=== PATIENT | female | born 1940 | race Caucasian/White ===

== ENCOUNTER → 2018-03-01 | Outpatient (CLI) | payer MEDICARE, OTHER ==
[~2018-03-01] MED LIST: ARIP20; ASPI81EC; CITA20 PO; COLE1 PO; ETOD400; FENO67; GABA300; GABA300 PO; GLIP10 PO; GLYB2.5 PO; HYDACE10A; HYDMOR2 PO; INSUASPI SC; INSULANPEN; K-Dur20 MEQ PO; LEVSOD50 PO; LISI20; LOSA50; LOSA50 PO; Lasix20 MG PO; Lisinopril2.5 MG PO; META800; METF500 PO; METF850 PO; METFORMIN HCL; METO10 PO; METR70GEL; METR70GEL VAG; MINO100 PO; OMEP40CA12 PO; PROM25S PR; Questran4 GM; RISE35; TRADJENTA5 MG PO; TRET.1TC; TRIHYD253A; TRIHYD253A PO; TRIHYD253B; VENL37.5ER PO; VENL75; VITAMINS; ZOLP10; Zofran Odt4 MG SL
[2018-03-01 14:43] LABS: BASOPHILS ABSOLUTE AUTO 0.02 K/mm3 (0.00-0.23); BASOPHILS PERCENT AUTO 0 % (0-2); EOSINOPHILS ABSOLUTE AUTO 0.22 K/mm3 (0.00-0.68); EOSINOPHILS PERCENT AUTO 2 % (0-6); Hematocrit 35.9 % (33.0-51.0); Hemoglobin 11.8 g/dL (11.5-16.0); IMMATURE GRAN ABSOLUTE AUTO 0.04 K/mm3 (0.00-0.10); IMMATURE GRAN PERCENT AUTO 0 % (0-1); LYMPHOCYTES PERCENT AUTO 17 % (21-46); MONOCYTES ABSOLUTE AUTO 0.67 K/mm3 (0.16-1.47); MONOCYTES PERCENT AUTO 6 % (4-13); Mean Corpuscular HGB 29.2 pg (26.0-34.0); Mean Corpuscular HGB Conc 32.9 g/dL (31.5-36.5); Mean Corpuscular Volume 89 fL (80-100); Mean Platelet Volume 9.3 fL (9.1-12.4); NEUTROPHILS ABSOLUTE AUTO 7.93 K/mm3 (1.96-9.15); NEUTROPHILS PERCENT AUTO 74 % (41-73); Platelet Count 318 K/mm3 (150-400); RDW Coefficient Variation 13.7 % (11.7-14.2); RDW Standard Deviation 44.3 fL (35.1-46.3); Red Blood Cell Count 4.04 M/mm3 (3.80-5.20); White Blood Cell Count 10.68 K/mm3 (4.00-11.30)
[2018-03-01 14:54] LABS: Albumin, Blood 3.5 g/dL (3.4-5.0); Albumin/Globulin Ratio 0.9 (0.8-1.8); Bilirubin, Total 0.5 mg/dL (0.1-1.0); Bun/Creatinine Ratio 14.9 (12.0-20.0); Calcium, Blood 9.1 mg/dL (8.5-10.1); Creatinine, Blood 1.81 mg/dL (0.40-1.00); Globulin, Blood 3.8 g/dL (2.2-4.0); Potassium, Blood 4.3 mmol/L (3.5-5.5); Total Protein, Blood 7.3 g/dL (6.4-8.2)
[2018-03-01 15:52] LABS: Source, Urine Clean Catch
[2018-03-01 16:11] LABS: Bacteria Many /hpf; Red Blood Cells, Urine 0-2 /hpf (0-2); Squamous Epithelial Cells Mod /hpf (Few); White Blood Cells, Urine 25-50 /hpf (0-5)
== END ==
LOC: LAB EV 14:33 → LAB SHORT 14:33
PROVIDERS: Physician Assistant
DX: R05 Cough (principal); R82.79 Other abnormal findings on microbiological examination of urine
CPT/HCPCS: 80053; 81015; 83880; 84484; 85025; 87086

== ENCOUNTER → 2018-04-02 | Outpatient (CLI) | payer MEDICARE, OTHER ==
[2018-04-02 14:47] LABS: Albumin, Blood 3.7 g/dL (3.4-5.0); Anion Gap 8 mmol/L (6-16); Blood Urea Nitrogen 21 mg/dL (8-24); Bun/Creatinine Ratio 17.1 (12.0-20.0); CO2, Blood 28 mmol/L (21-32); Calcium, Blood 8.7 mg/dL (8.5-10.1); Chloride, Blood 108 mmol/L (98-108); Creatinine, Blood 1.23 mg/dL (0.40-1.00); Glomerular Filtration Rate 45 (60-); Glucose, Blood 76 mg/dL (70-99); Phosphorus, Blood 2.6 mg/dL (2.5-4.9); Potassium, Blood 3.9 mmol/L (3.5-5.5); Sodium, Blood 144 mmol/L (136-145)
== END | disposition home or self-care (01) ==
LOC: LAB SHORT 12:50 → OLS 12:50
PROVIDERS: Internal Medicine
DX: N18.3 Chronic kidney disease, stage 3 (moderate) (principal)
CPT/HCPCS: 36415; 80069

== ENCOUNTER → 2018-06-25 | Outpatient (CLI) | payer MEDICARE, OTHER | END | disposition home or self-care (01) | LOC: PLD 10:02 → LAB SHORT 10:02 | DX: L57.0 Actinic keratosis (principal) | CPT/HCPCS: 88305 ==

== ENCOUNTER → 2018-10-24 | Outpatient (CLI) | payer MEDICARE, OTHER | END | disposition home or self-care (01) | LOC: LAB SHORT 11:38 → LAB EV 11:38 | DX: N39.0 Urinary tract infection, site not specified (principal) | CPT/HCPCS: 87086 ==

== ENCOUNTER 2018-12-12 14:22 | Emergency (ER) | payer MEDICARE, OTHER ==
[~2018-12-12] VITALS: Ht 167.6 cm; Wt 94.8 kg
[2018-12-12 15:32] LABS: Influenza A Negative (NEGATIVE); Influenza B Negative (NEGATIVE)
[2018-12-12 15:46] LABS: BASOPHILS ABSOLUTE AUTO 0.02 K/mm3 (0.00-0.23); BASOPHILS PERCENT AUTO 0 % (0-2); EOSINOPHILS ABSOLUTE AUTO 0.27 K/mm3 (0.00-0.68); EOSINOPHILS PERCENT AUTO 5 % (0-6); Hematocrit 38.3 % (33.0-51.0); Hemoglobin 12.1 g/dL (11.5-16.0); IMMATURE GRAN ABSOLUTE AUTO 0.02 K/mm3 (0.00-0.10); IMMATURE GRAN PERCENT AUTO 0 % (0-1); LYMPHOCYTES ABSOLUTE AUTO 1.43 K/mm3 (0.84-5.20); LYMPHOCYTES PERCENT AUTO 28 % (21-46); MONOCYTES ABSOLUTE AUTO 0.54 K/mm3 (0.16-1.47); MONOCYTES PERCENT AUTO 10 % (4-13); Mean Corpuscular HGB 28.5 pg (26.0-34.0); Mean Corpuscular HGB Conc 31.6 g/dL (31.5-36.5); Mean Corpuscular Volume 90 fL (80-100); Mean Platelet Volume 9.2 fL (9.1-12.4); NEUTROPHILS ABSOLUTE AUTO 2.89 K/mm3 (1.96-9.15); NEUTROPHILS PERCENT AUTO 56 % (41-73); Platelet Count 251 K/mm3 (150-400); RDW Coefficient Variation 13.2 % (11.7-14.2); RDW Standard Deviation 43.9 fL (35.1-46.3); Red Blood Cell Count 4.24 M/mm3 (3.80-5.20); White Blood Cell Count 5.17 K/mm3 (4.00-11.30)
== END 2018-12-12 17:17 | disposition home or self-care (01) ==
LOC: ER 14:22
PROVIDERS: Physician Assistant
DX: J11.1 Influenza due to unidentified influenza virus with other respiratory manifestations (principal); F32.9 Major depressive disorder, single episode, unspecified; E03.9 Hypothyroidism, unspecified; I10 Essential (primary) hypertension; E11.9 Type 2 diabetes mellitus without complications; Z79.899 Other long term (current) drug therapy; Z79.4 Long term (current) use of insulin; Z88.5 Allergy status to narcotic agent; Z88.2 Allergy status to sulfonamides; Z88.8 Allergy status to other drugs, medicaments and biological substances; Z87.891 Personal history of nicotine dependence
CPT/HCPCS: 71046; 83880; 84484; 85025; 87804; 94640; 99284-25

== ENCOUNTER → 2019-06-09 | Outpatient (CLI) | payer MEDICARE, OTHER | LOC: LAB SHORT 19:05 → LAB EV 19:05 | DX: N39.0 Urinary tract infection, site not specified (principal) | CPT/HCPCS: 87077; 87086; 87186 ==

== ENCOUNTER → 2019-11-06 | Outpatient (CLI) | payer MEDICARE, OTHER ==
[2019-11-06 15:18] LABS: Source, Urine Clean Catch
[2019-11-06 16:36] LABS: Bilirubin, Urine Neg (Neg); Blood, Urine 2+ (Neg); Glucose Qualitative, Urine Neg (Neg); Ketones, Urine Neg (Neg); Leukocyte Esterase, Urine 2+ (Neg); Nitrite, Urine Neg (Neg); Protein, Urine 2+ (Neg); Specific Gravity, Urine 1.015 (1.003-1.022); Urobilinogen, Urine NORM (Normal)
[2019-11-06 16:50] LABS: Appearance, Urine Clear (Clear); Color, Urine Yellow (P-Yellow)
[2019-11-06 16:52] LABS: Bacteria Mod /hpf; Squamous Epithelial Cells Few /hpf (Few)
== END ==
LOC: LAB SHORT 15:15 → OLS 15:15
PROVIDERS: Internal Medicine
DX: N39.0 Urinary tract infection, site not specified (principal)
CPT/HCPCS: 81001; 87086

== ENCOUNTER 2019-12-03 09:29 | Day surgery (SDC) | payer MEDICARE, OTHER ==
[~2019-12-03] VITALS: Ht 165.1 cm; Wt 91.5 kg
[2019-12-03] MEDS ORDERED: METF500 (10:23)
[2019-12-03] MEDS ORDERED: POTA10T (10:23)
[2019-12-03] MEDS ORDERED: Ferus150 MG (10:23)
[2019-12-03] MEDS ORDERED: OXYC5 (10:23)
[2019-12-03] MEDS ORDERED: TRULICITY1.5 MG/0.5 (10:24)
[2019-12-03] MEDS ORDERED: OMEP20ER (10:25)
[2019-12-03] MEDS ORDERED: LINZESS72 MCG (10:25)
--- NOTE | 2019-12-03 10:46 | NUR ---
12/03/19 1046 Carrie Carias WHEN ASKED PT. IF SHE HAD ANY PAIN, PT. VERBALIZES CONSTANT BACK PAIN IN WHICH SHE TAKES OXYCODONE FOR & HASN'T TAKEN HER OXYCONDONE TODAY. PT. ALSO VERBALIZES HAS SOME ABD. PAIN FROM THE PREP. PT. RATING HER BACK PAIN "8" & ABD. PAIN "5".
== END 2019-12-03 12:05 | disposition home or self-care (01) ==
LOC: ORSCSDS 09:29
PROVIDERS: Internal Medicine Gastroenterology
PROC: 0DB78ZX Excision of Stomach, Pylorus, Via Natural or Artificial Opening Endoscopic, Diagnostic (ICD-10-PCS; principal; 2019-12-03 10:45)
PROC: 0DBL8ZX Excision of Transverse Colon, Via Natural or Artificial Opening Endoscopic, Diagnostic (ICD-10-PCS; principal; 2019-12-03 10:45)
PROC: 0D757ZZ Dilation of Esophagus, Via Natural or Artificial Opening (ICD-10-PCS; principal; 2019-12-03 10:45)
DX: R19.4 Change in bowel habit (principal); R13.10 Dysphagia, unspecified; D12.4 Benign neoplasm of descending colon; K29.70 Gastritis, unspecified, without bleeding; K57.30 Diverticulosis of large intestine without perforation or abscess without bleeding; K64.8 Other hemorrhoids; I10 Essential (primary) hypertension; E11.9 Type 2 diabetes mellitus without complications; E03.9 Hypothyroidism, unspecified; N18.9 Chronic kidney disease, unspecified; Z87.891 Personal history of nicotine dependence; Z79.4 Long term (current) use of insulin; Z79.84 Long term (current) use of oral hypoglycemic drugs; Z79.899 Other long term (current) drug therapy
CPT/HCPCS: 82947; 88305; 88342; J2405; J2704; J7120

== ENCOUNTER → 2019-12-12 | Outpatient (CLI) | payer MEDICARE, OTHER ==
[~2019-12-12] MED LIST changes: +Ferus150 MG; +LINZESS72 MCG; +METF500; +OMEP20ER; +OXYC5; +POTA10T; +TRULICITY1.5 MG/0.5
[2019-12-12 14:50] LABS: Source, Urine Clean Catch
[2019-12-12 15:48] LABS: Bilirubin, Urine Neg (Neg); Blood, Urine 3+ (Neg); Color, Urine Yellow (P-Yellow); Glucose Qualitative, Urine 2+ (Neg); Ketones, Urine Neg (Neg); Leukocyte Esterase, Urine 1+ (Neg); Nitrite, Urine Neg (Neg); Protein, Urine 2+ (Neg); Urobilinogen, Urine NORM (Normal)
[2019-12-12 16:11] LABS: Appearance, Urine Hazy (Clear)
[2019-12-12 16:32] LABS: Bacteria Mod /hpf; Squamous Epithelial Cells Mod /hpf (Few)
== END | disposition home or self-care (01) ==
LOC: LAB SHORT 14:50 → OLS 14:50 → LAB FUT 12-09 09:15
PROVIDERS: Internal Medicine
DX: R31.9 Hematuria, unspecified (principal)
CPT/HCPCS: 81001; 87086

== ENCOUNTER 2020-06-23 07:24 | Day surgery (SDC) | payer MEDICARE, OTHER ==
[~2020-06-23] VITALS: Ht 162.6 cm; Wt 89.7 kg
[~2020-06-23 07:24] MED LIST changes: +Amaryl1 MG PO; +BASAGLAR K100 UNIT/1 SC; +COLESTID1 G1 PO; +DYAZIDE 37.5-21 EACH PO; +FERREX 150150 M1 PO; +FLUT.05NI; +LEVSOD75 PO; +LINZESS72 MCG PO; +Loratadine10 MG PO; +NOVOLOG FL100 UNIT/3 SQ; +OXYC5 PO; +POTA10T PO; +TRULICITY1.5 MG/0.1
--- NOTE | 2020-06-23 08:52 | NUR ---
06/23/20 0852 Elana Díaz (Jess BEDSIDE INJECTION DONE BY DR. LILLY, DR. FRYE PRESENT. SITE CHECK COMPLETED, PULSE OX ON THROUGHOUT PROCEDURE. PT TOLERATED WELL.
== END 2020-06-23 09:56 | disposition home or self-care (01) ==
LOC: ORSCSDS 07:24
PROVIDERS: Orthopaedic Surgery
PROC: 01N54ZZ Release Median Nerve, Percutaneous Endoscopic Approach (ICD-10-PCS; principal; 2020-06-23 08:30)
DX: G56.01 Carpal tunnel syndrome, right upper limb (principal); I10 Essential (primary) hypertension; E11.9 Type 2 diabetes mellitus without complications; N18.3 Chronic kidney disease, stage 3 (moderate); E03.9 Hypothyroidism, unspecified; E78.5 Hyperlipidemia, unspecified; Z87.891 Personal history of nicotine dependence; E66.9 Obesity, unspecified; Z68.34 Body mass index [BMI] 34.0-34.9, adult; Z79.4 Long term (current) use of insulin; Z79.84 Long term (current) use of oral hypoglycemic drugs; Z79.899 Other long term (current) drug therapy
CPT/HCPCS: 82947; J2250; J7120

== ENCOUNTER → 2021-01-19 | Outpatient (CLI) | payer MEDICARE, OTHER | LOC: LAB SHORT 07:48 | DX: L98.9 Disorder of the skin and subcutaneous tissue, unspecified (principal); L57.0 Actinic keratosis | CPT/HCPCS: 88305 ==

== ENCOUNTER → 2021-08-03 | Outpatient (CLI) | payer MEDICARE, OTHER | LOC: LAB SHORT 14:51 → LAB 14:51 | DX: D48.5 Neoplasm of uncertain behavior of skin (principal); D04.62 Carcinoma in situ of skin of left upper limb, including shoulder; Z88.2 Allergy status to sulfonamides; Z88.5 Allergy status to narcotic agent; Z88.6 Allergy status to analgesic agent; Z88.8 Allergy status to other drugs, medicaments and biological substances | CPT/HCPCS: 88305 ==

== ENCOUNTER → 2021-09-14 | Outpatient (CLI) | payer MEDICARE, OTHER ==
[2021-09-15 10:55] LABS: Candida species (DNA Probe) Negative (NEGATIVE); G. vaginalis (DNA Probe) Negative (NEGATIVE); T. vaginalis (DNA Probe) Negative (NEGATIVE)
== END | disposition home or self-care (01) ==
LOC: LAB SHORT 19:07 → LAB 19:07
PROVIDERS: Physician Assistant
DX: N76.0 Acute vaginitis (principal)
CPT/HCPCS: 87480; 87510; 87660

== ENCOUNTER → 2021-09-29 | Outpatient (CLI) | payer MEDICARE, OTHER | END | disposition home or self-care (01) | LOC: LAB SHORT 14:52 | DX: C44.629 Squamous cell carcinoma of skin of left upper limb, including shoulder (principal) | CPT/HCPCS: 88305 ==

== ENCOUNTER → 2021-11-03 | Outpatient (CLI) | payer MEDICARE, OTHER ==
[2021-11-03 11:10] LABS: BASOPHILS ABSOLUTE AUTO 0.02 K/mm3 (0.00-0.23); BASOPHILS PERCENT AUTO 0 % (0-2); EOSINOPHILS ABSOLUTE AUTO 0.14 K/mm3 (0.00-0.68); EOSINOPHILS PERCENT AUTO 2 % (0-6); Hematocrit 36.4 % (33.0-51.0); Hemoglobin 11.5 g/dL (11.5-16.0); IMMATURE GRAN ABSOLUTE AUTO 0.02 K/mm3 (0.00-0.10); IMMATURE GRAN PERCENT AUTO 0 % (0-1); LYMPHOCYTES ABSOLUTE AUTO 2.04 K/mm3 (0.84-5.20); LYMPHOCYTES PERCENT AUTO 27 % (21-46); MONOCYTES ABSOLUTE AUTO 0.38 K/mm3 (0.16-1.47); MONOCYTES PERCENT AUTO 5 % (4-13); Mean Corpuscular HGB 27.8 pg (26.0-34.0); Mean Corpuscular HGB Conc 31.6 g/dL (31.5-36.5); Mean Corpuscular Volume 88 fL (80-100); Mean Platelet Volume 9.3 fL (9.1-12.4); NEUTROPHILS ABSOLUTE AUTO 4.93 K/mm3 (1.96-9.15); NEUTROPHILS PERCENT AUTO 65 % (41-73); Platelet Count 290 K/mm3 (150-400); RDW Standard Deviation 41.2 fL (35.1-46.3); Red Blood Cell Count 4.14 M/mm3 (3.80-5.20); White Blood Cell Count 7.53 K/mm3 (4.00-11.30)
[2021-11-03 11:34] LABS: Alanine Aminotransfer (ALT/SGP 15 U/L (12-78); Albumin, Blood 3.8 g/dL (3.4-5.0); Albumin/Globulin Ratio 1.1 (0.8-1.8); Alk Phos 137 U/L (40-126); Anion Gap 14 mmol/L (6-16); Aspartate Aminotrans (AST/SGOT 11 U/L (12-37); Bilirubin, Total 0.4 mg/dL (0.1-1.0); Blood Urea Nitrogen 48 mg/dL (8-24); Bun/Creatinine Ratio 24.2 (12.0-20.0); CO2, Blood 24 mmol/L (21-32); Calcium, Blood 9.6 mg/dL (8.5-10.1); Chloride, Blood 103 mmol/L (98-108); Creatinine, Blood 1.98 mg/dL (0.40-1.00); Globulin, Blood 3.5 g/dL (2.2-4.0); Glomerular Filtration Rate 24 (60-); Glucose, Blood 156 mg/dL (70-99); Potassium, Blood 4.7 mmol/L (3.5-5.5); Sodium, Blood 141 mmol/L (136-145); Thyroid Stimulating Hormone 0.572 uIU/mL (0.360-4.800); Total Protein, Blood 7.3 g/dL (6.4-8.2); Troponin I <0.017 ng/mL (0.000-0.040)
[2021-11-04 13:55] LABS: CORONAVIRUS (COVID19) CSH-NRL Negative (Negative)
== END | disposition home or self-care (01) ==
LOC: LAB SHORT 11:07
PROVIDERS: Physician Assistant
DX: R07.89 Other chest pain (principal); R53.83 Other fatigue; Z20.822 Contact with and (suspected) exposure to COVID-19
CPT/HCPCS: 80053; 84443; 84484; 85025; U0003

== ENCOUNTER → 2021-11-24 | Outpatient (CLI) | payer MEDICARE, OTHER | END | disposition home or self-care (01) | LOC: LAB SHORT 14:36 | DX: L57.0 Actinic keratosis (principal) | CPT/HCPCS: 88305 ==

== ENCOUNTER → 2022-06-05 | Outpatient (CLI) | payer MEDICARE, OTHER | END | disposition home or self-care (01) | LOC: LAB 11:39 → LAB SHORT 11:39 | DX: C44.622 Squamous cell carcinoma of skin of right upper limb, including shoulder (principal); C44.629 Squamous cell carcinoma of skin of left upper limb, including shoulder; L57.0 Actinic keratosis | CPT/HCPCS: 88305 ==

== ENCOUNTER → 2022-12-05 | Outpatient (CLI) | payer MEDICARE, OTHER | END | disposition home or self-care (01) | LOC: LAB SHORT 12:22 → PLD 12:22 | DX: L57.0 Actinic keratosis (principal) | CPT/HCPCS: 88305 ==

== ENCOUNTER → 2023-02-21 | Outpatient (CLI) | payer MEDICARE, OTHER | END | disposition home or self-care (01) | LOC: PLD 08:03 → LAB SHORT 08:03 | DX: D48.5 Neoplasm of uncertain behavior of skin (principal); D04.71 Carcinoma in situ of skin of right lower limb, including hip; L57.0 Actinic keratosis | CPT/HCPCS: 88305 ==

== ENCOUNTER → 2023-06-20 | Outpatient (CLI) | payer MEDICARE, OTHER | END | disposition home or self-care (01) | LOC: LAB SHORT 12:29 → PLD 12:29 | DX: D48.5 Neoplasm of uncertain behavior of skin (principal) | CPT/HCPCS: 88305 ==

== ENCOUNTER → 2023-09-13 | Outpatient (CLI) | payer MEDICARE, OTHER | LOC: LAB 14:30 → LAB SHORT 14:30 | DX: D04.62 Carcinoma in situ of skin of left upper limb, including shoulder (principal) | CPT/HCPCS: 88305 ==

== ENCOUNTER → 2023-10-18 | Outpatient (CLI) | payer MEDICARE, OTHER | LOC: LAB 12:34 → LAB SHORT 12:34 | DX: D04.62 Carcinoma in situ of skin of left upper limb, including shoulder (principal); D04.71 Carcinoma in situ of skin of right lower limb, including hip | CPT/HCPCS: 88305 ==

== ENCOUNTER → 2024-01-29 | Outpatient (CLI) | payer MEDICARE, OTHER ==
[~2024-01-29] MED LIST changes: +AMLO5 PO; +SAVELLA12.5 MG PO; +Vitamin D1000 UNI1 PO
[2024-01-29 20:45] LABS: BASOPHILS ABSOLUTE AUTO 0.02 K/mm3 (0.00-0.23); BASOPHILS PERCENT AUTO 0 % (0-2); EOSINOPHILS PERCENT AUTO 2 % (0-6); Hematocrit 36.5 % (33.0-51.0); IMMATURE GRAN ABSOLUTE AUTO 0.01 K/mm3 (0.00-0.10); IMMATURE GRAN PERCENT AUTO 0 % (0-1); LYMPHOCYTES ABSOLUTE AUTO 1.86 K/mm3 (0.84-5.20); LYMPHOCYTES PERCENT AUTO 34 % (21-46); MONOCYTES ABSOLUTE AUTO 0.32 K/mm3 (0.16-1.47); MONOCYTES PERCENT AUTO 6 % (4-13); Mean Corpuscular HGB 29.3 pg (26.0-34.0); Mean Corpuscular HGB Conc 32.9 g/dL (31.5-36.5); Mean Corpuscular Volume 89 fL (80-100); Mean Platelet Volume 9.5 fL (9.1-12.4); NEUTROPHILS ABSOLUTE AUTO 3.09 K/mm3 (1.96-9.15); NEUTROPHILS PERCENT AUTO 57 % (41-73); Platelet Count 350 K/mm3 (150-400); RDW Coefficient Variation 12.8 % (11.7-14.2); RDW Standard Deviation 41.9 fL (35.1-46.3)
[2024-01-29 21:15] LABS: Bun/Creatinine Ratio 18.1 (12.0-20.0); Calcium, Blood 9.6 mg/dL (8.5-10.1); Creatinine, Blood 1.6 mg/dL (0.40-1.00); Potassium, Blood 4.3 mmol/L (3.5-5.5); Thyroid Stimulating Hormone 1.05 uIU/mL (0.360-4.800)
== END | disposition home or self-care (01) ==
LOC: LAB 19:50 → LAB SHORT 19:50
PROVIDERS: Physician Assistant Medical
DX: R60.9 Edema, unspecified (principal); R53.83 Other fatigue
CPT/HCPCS: 80048; 83880; 84443; 85025

== ENCOUNTER 2024-02-06 03:26 | Day surgery (SDC) | payer MEDICARE, OTHER ==
[~2024-02-06 03:26] MED LIST changes: -SAVELLA12.5 MG PO
[2024-02-06 14:06] VITALS: BP 145/71
[2024-02-06] MEDS ORDERED: SAVELLA12.5 MG PO (14:09)
[2024-02-06] MEDS ORDERED: Golimumab 150 MG in NS 100 ML IV SCH (14:30)
--- NOTE | 2024-02-10 15:29 | NUR ---
BETSY BECERRIL START TIME: 1450 STOP TIME: 1520
== END 2024-02-06 15:30 | disposition home or self-care (01) ==
LOC: ATC 03:26
DX: M05.79 Rheumatoid arthritis with rheumatoid factor of multiple sites without organ or systems involvement (principal); I12.9 Hypertensive chronic kidney disease with stage 1 through stage 4 chronic kidney disease, or unspecified chronic kidney disease; E11.22 Type 2 diabetes mellitus with diabetic chronic kidney disease; N18.9 Chronic kidney disease, unspecified; Z88.5 Allergy status to narcotic agent; Z88.2 Allergy status to sulfonamides; Z88.8 Allergy status to other drugs, medicaments and biological substances; Z79.890 Hormone replacement therapy; Z79.4 Long term (current) use of insulin; Z79.899 Other long term (current) drug therapy
CPT/HCPCS: 96365; J1602

== ENCOUNTER 2024-03-24 04:01 | Day surgery (SDC) | payer MEDICARE, OTHER ==
[~2024-03-24 04:01] MED LIST changes: +AMLO10 PO; -AMLO5 PO; +Amitiza8 MCG PO; +CARV6.25 PO; +CEPH500 PO; +CHLO25B PO; +CIPR500 PO; +OZEMPIC2 MG/0.75 SC; +SAVELLA12.5 MG PO; +VISBIOME 112.51 EACH PO
[2024-03-24] MEDS ORDERED: Golimumab 150 MG in NS 100 ML IV SCH (14:20)
[2024-03-24 14:54] VITALS: BP 129/55
[2024-03-24 14:59] LABS: BASOPHILS ABSOLUTE AUTO 0.01 K/mm3 (0.00-0.23); BASOPHILS PERCENT AUTO 0 % (0-2); EOSINOPHILS ABSOLUTE AUTO 0.06 K/mm3 (0.00-0.68); EOSINOPHILS PERCENT AUTO 2 % (0-6); Hematocrit 34.7 % (33.0-51.0); Hemoglobin 11.1 g/dL (11.5-16.0); IMMATURE GRAN PERCENT AUTO 0 % (0-1); LYMPHOCYTES ABSOLUTE AUTO 1.55 K/mm3 (0.84-5.20); LYMPHOCYTES PERCENT AUTO 45 % (21-46); MONOCYTES ABSOLUTE AUTO 0.23 K/mm3 (0.16-1.47); MONOCYTES PERCENT AUTO 7 % (4-13); Mean Corpuscular HGB 28.8 pg (26.0-34.0); Mean Corpuscular Volume 90 fL (80-100); Mean Platelet Volume 9.5 fL (9.1-12.4); NEUTROPHILS ABSOLUTE AUTO 1.61 K/mm3 (1.96-9.15); NEUTROPHILS PERCENT AUTO 47 % (41-73); Platelet Count 346 K/mm3 (150-400); RDW Coefficient Variation 12.4 % (11.7-14.2); RDW Standard Deviation 40.3 fL (35.1-46.3); Red Blood Cell Count 3.86 M/mm3 (3.80-5.20); White Blood Cell Count 3.46 K/mm3 (4.00-11.30)
[2024-03-24 15:29] LABS: C-REACTIVE PROTEIN, EXT RANGE <0.290 mg/dL (0.000-0.300)
[2024-03-24 15:30] LABS: Alanine Aminotransfer (ALT/SGP 16 U/L (12-78); Albumin, Blood 3.8 g/dL (3.4-5.0); Alk Phos 86 U/L (50-136); Anion Gap 9 mmol/L (3-11); Aspartate Aminotrans (AST/SGOT 13 U/L (12-37); Bilirubin, Total 0.5 mg/dL (0.1-1.0); Blood Urea Nitrogen 32 mg/dL (8-24); CO2, Blood 28 mmol/L (21-32); Calcium, Blood 9.5 mg/dL (8.5-10.1); Chloride, Blood 109 mmol/L (98-108); Creatinine, Blood 1.88 mg/dL (0.40-1.00); Globulin, Blood 3.7 g/dL (2.2-4.0); Glomerular Filtration Rate 27 (60-); Glucose, Blood 96 mg/dL (70-99); Potassium, Blood 3.6 mmol/L (3.5-5.5); Sodium, Blood 142 mmol/L (136-145); Total Protein, Blood 7.5 g/dL (6.4-8.2)
== END 2024-03-24 15:22 | disposition home or self-care (01) ==
LOC: ATC 04:01
PROVIDERS: Internal Medicine
DX: M05.79 Rheumatoid arthritis with rheumatoid factor of multiple sites without organ or systems involvement (principal); I12.9 Hypertensive chronic kidney disease with stage 1 through stage 4 chronic kidney disease, or unspecified chronic kidney disease; E11.22 Type 2 diabetes mellitus with diabetic chronic kidney disease; N18.9 Chronic kidney disease, unspecified; Z88.5 Allergy status to narcotic agent; Z88.2 Allergy status to sulfonamides; Z88.8 Allergy status to other drugs, medicaments and biological substances; Z79.4 Long term (current) use of insulin; Z79.899 Other long term (current) drug therapy
CPT/HCPCS: 80053; 85025; 86140; 96365; J1602

== ENCOUNTER 2024-06-19 18:12 | Inpatient (IN) | payer MEDICARE, OTHER ==
[~2024-06-19] VITALS: Ht 167.6 cm; Wt 72.8 kg
[~2024-06-19 18:12] MED LIST changes: -AMLO10 PO; +AMLO5; +BETA.05TCA TOP; +MUPIROCIN15 GM TOP
[2024-06-19 19:03] LABS: BASOPHILS ABSOLUTE AUTO 0.02 K/mm3 (0.00-0.23); BASOPHILS PERCENT AUTO 0 % (0-2); EOSINOPHILS PERCENT AUTO 0 % (0-6); Hematocrit 34.6 % (33.0-51.0); Hemoglobin 11.8 g/dL (11.5-16.0); IMMATURE GRAN PERCENT AUTO 1 % (0-1); LYMPHOCYTES ABSOLUTE AUTO 0.91 K/mm3 (0.84-5.20); LYMPHOCYTES PERCENT AUTO 5 % (21-46); MONOCYTES ABSOLUTE AUTO 1.16 K/mm3 (0.16-1.47); MONOCYTES PERCENT AUTO 6 % (4-13); Mean Corpuscular HGB 29.3 pg (26.0-34.0); Mean Corpuscular HGB Conc 34.1 g/dL (31.5-36.5); Mean Corpuscular Volume 86 fL (80-100); Mean Platelet Volume 9.4 fL (9.1-12.4); NEUTROPHILS ABSOLUTE AUTO 15.94 K/mm3 (1.96-9.15); NEUTROPHILS PERCENT AUTO 87 % (41-73); Platelet Count 242 K/mm3 (150-400); RDW Coefficient Variation 12.2 % (11.7-14.2); RDW Standard Deviation 38.1 fL (35.1-46.3); Red Blood Cell Count 4.03 M/mm3 (3.80-5.20); White Blood Cell Count 18.23 K/mm3 (4.00-11.30)
[2024-06-19 19:15] LABS: Albumin, Blood 3.4 g/dL (3.4-5.0); Albumin/Globulin Ratio 0.9 (0.8-1.8); Bilirubin, Total 1.1 mg/dL (0.1-1.0); Bun/Creatinine Ratio 14.1 (12.0-20.0); Calcium, Blood 8.7 mg/dL (8.5-10.1); Creatinine, Blood 1.49 mg/dL (0.40-1.00); Globulin, Blood 3.9 g/dL (2.2-4.0); Potassium, Blood 3.7 mmol/L (3.5-5.5); Total Protein, Blood 7.3 g/dL (6.4-8.2)
[2024-06-19] MEDS ORDERED: NS 1,000 ML IV SCH ×2 (19:25→23:45)
[2024-06-19] MEDS ORDERED: Vancomycin HCL 1,500 MG in NS 250 ML IV ONE (19:25)
[2024-06-19] MEDS ORDERED: CefTRIAXone Sodium 2,000 MG in NS 100 ML IV ONE (19:25)
[2024-06-19 19:45] LABS: Source, Urine Clean Catch
[2024-06-19 19:53] LABS: Appearance, Urine Clear (Clear); Bilirubin, Urine Neg (Neg); Blood, Urine 4+ (Neg); Color, Urine Yellow (P-Yellow); Glucose Qualitative, Urine Neg (Neg); Ketones, Urine Neg (Neg); Leukocyte Esterase, Urine Neg (Neg); Nitrite, Urine Neg (Neg); Protein, Urine 4+ (Neg); Urobilinogen, Urine NORM (Normal); pH, Urine 6.5 (5.0-8.0)
[2024-06-19 19:55] LABS: International Normalized Ratio 1.07; Prothrombin Time Results 11.4 Sec (9.7-11.5)
[2024-06-19 20:03] LABS: Magnesium, Blood 1.6 mg/dL (1.6-2.4); Phosphorus, Blood 1.1 mg/dL (2.5-4.9)
[2024-06-19 20:05] LABS: Bacteria Rare /hpf; Squamous Epithelial Cells Not Seen /hpf (Few); White Blood Cells, Urine 0-2 /hpf (0-5)
[2024-06-19 20:31] LABS: Influenza A, PCR NEGATIVE (NEGATIVE); Influenza B, PCR NEGATIVE (NEGATIVE); Resp Syncytial Virus, PCR NEGATIVE (NEGATIVE); SARS-Cov-2 (COVID-19) PCR, MMC NEGATIVE (NEGATIVE)
[2024-06-19] MEDS ORDERED: Acetaminophen 650 MG Supp PR ONE (22:25)
[2024-06-19] MEDS ORDERED: Ondansetron HCl 2 MG / ML 2ML Vial IV PRN (22:35)
[2024-06-19] MEDS ORDERED: Aspirin 300 MG Supp PR SCH (23:00)
[2024-06-20] MEDS ORDERED: Azithromycin 500 MG in NS 250 ML IV SCH
[2024-06-20] MEDS ORDERED: Potassium Phosphate Dibasic 30 MM in Dextrose 5% 500 ML IV STA (00:20)
[2024-06-20 00:38] VITALS: BP 151/59
--- NOTE | 2024-06-20 02:32 | NUR ---
PATIENT IS A NEW ADMIT FROM THE ED. AXOX 4 AND THREE PERSON TRANSFER FROM [facility] TO BED. NPO. ROCHE PLACED IN ED. IV VANCO INFUSING FROM THE ED. DENIES CHEST PAIN, SOB, AND N/V. LIGHTING ENGINEER STRONG AND EQUAL, PUPILS REACTIVE, PUSH/PULL BLE STRONG AND EQUAL. PATIENT REPORTED NOT REMEMBERING EVENTS FROM PRIOR DAY AND A HALF. FORGOT TO PICKUP FAMILY MEMBER CHILDREN FROM SCHOOL, SLEPT THROUGH EVENT. TELEMETRY PLACED NSR 68. IV ABX INFUSING FOLLOWED BY IV POTASSIUM/PHOSPHATE. SCATTER BRUSING T/O. SCAB TO LEFT FOOT DORSAL FROM RECENT CANCER REMOVAL AND ALSO ON LEFT FACIAL CHEEK. TEMP 98.4. ASPIRIN SUPPOSITORY GIVEN PER EMAR. ORIENTED TO ROOM AND CALL LIGHT SYSTEM. WCTM.
--- NOTE | 2024-06-20 03:20 | NUR ---
MRI SCREENING FORM FILLED OUT AND FAXED. PATIENT REPORTS LANNY GLUCOMETER TO BACK OF LEFT ARM. RESTING/SLEEPING IN BED. WCTM.
[2024-06-20 04:16] VITALS: BP 149/60
[2024-06-20] MEDS ORDERED: OxyCODONE HCL 5 MG TAB PO PRN (06:30)
[2024-06-20] MEDS ORDERED: Insulin Human Lispro 100 Units/ML 3ML Syringe SC SCH (07:30)
[2024-06-20 07:49] VITALS: BP 150/65
[2024-06-20] MEDS ORDERED: LUBIPROSTONE 8 MCG PO SCH (08:00)
[2024-06-20] MEDS ORDERED: Carvedilol 6.25 MG Tab PO SCH (08:00)
[2024-06-20] MEDS ORDERED: Gabapentin 300 MG Cap PO SCH (09:00)
[2024-06-20] MEDS ORDERED: AmLODIPine Besylate 5 MG Tab PO SCH (09:00)
[2024-06-20] MEDS ORDERED: MILNACIPRAN 12.5 MG PO SCH (09:00)
[2024-06-20] MEDS ORDERED: Aspirin 325 MG Tab PO SCH (09:00)
[2024-06-20] MEDS ORDERED: Enoxaparin 30 MG/0.3 ML SYR SC SCH (09:00)
[2024-06-20] MEDS ORDERED: Betamethasone Dip 0.05% Cream 15 gm TOP SCH (09:00)
[2024-06-20] MEDS ORDERED: CefTRIAXone Sodium 1,000 MG in NS 100 ML IV SCH (09:00)
[2024-06-20] MEDS ORDERED: Losartan Potassium 50 MG Tab PO SCH (09:00)
[2024-06-20] MEDS ORDERED: Clopidogrel Bisulfate 75 MG Tab PO SCH (09:00)
[2024-06-20 10:27] LABS: BASOPHILS ABSOLUTE AUTO 0.02 K/mm3 (0.00-0.23); BASOPHILS PERCENT AUTO 0 % (0-2); EOSINOPHILS ABSOLUTE AUTO 0.02 K/mm3 (0.00-0.68); EOSINOPHILS PERCENT AUTO 0 % (0-6); Hemoglobin 11.3 g/dL (11.5-16.0); IMMATURE GRAN ABSOLUTE AUTO 0.06 K/mm3 (0.00-0.10); IMMATURE GRAN PERCENT AUTO 0 % (0-1); LYMPHOCYTES ABSOLUTE AUTO 1.44 K/mm3 (0.84-5.20); LYMPHOCYTES PERCENT AUTO 10 % (21-46); MONOCYTES ABSOLUTE AUTO 0.76 K/mm3 (0.16-1.47); MONOCYTES PERCENT AUTO 5 % (4-13); Mean Corpuscular HGB 29.4 pg (26.0-34.0); Mean Corpuscular HGB Conc 34.2 g/dL (31.5-36.5); Mean Corpuscular Volume 86 fL (80-100); Mean Platelet Volume 9.2 fL (9.1-12.4); NEUTROPHILS ABSOLUTE AUTO 11.91 K/mm3 (1.96-9.15); NEUTROPHILS PERCENT AUTO 84 % (41-73); Platelet Count 193 K/mm3 (150-400); RDW Coefficient Variation 12.2 % (11.7-14.2); RDW Standard Deviation 38.1 fL (35.1-46.3); Red Blood Cell Count 3.85 M/mm3 (3.80-5.20); White Blood Cell Count 14.21 K/mm3 (4.00-11.30)
[2024-06-20] MEDS ORDERED: NS 250 ML IV PRN (10:30)
[2024-06-20 11:00] LABS: Albumin, Blood 2.9 g/dL (3.4-5.0); Albumin/Globulin Ratio 0.8 (0.8-1.8); Bilirubin, Total 0.7 mg/dL (0.1-1.0); Bun/Creatinine Ratio 15.1 (12.0-20.0); Calcium, Blood 8.7 mg/dL (8.5-10.1); Creatinine, Blood 1.66 mg/dL (0.40-1.00); Globulin, Blood 3.5 g/dL (2.2-4.0); Potassium, Blood 3.9 mmol/L (3.5-5.5); Total Protein, Blood 6.4 g/dL (6.4-8.2)
[2024-06-20] MEDS ORDERED: Atorvastatin 10 MG Tab PO SCH (18:00)
--- NOTE | 2024-06-20 18:42 | NUR ---
SHIFT SUMMARY: PT IS A/O X 4 SBA PLEASANT AND COOPERATIVE WITH CARE. PT HAS NO NEURO DEFICITS THROUGHOUT THE DAY. SHE HAS MADE ALL HER NEEDS KNOWN. SHE HAS HAD NO C/O PAIN OR NAUSEA. PT WORKED WITH PT/OT. SHE HAS ORDER TO DC ROCHE BUT SHE ASKED US TO WAIT UNTIL HER VISITING FAMILY LEAVE BEFORE REMOVING ROCHE. PT EATING WELL AND DRINKING FLUIDS WELL. MRI UNABLE TO BE DONE BECAUSE PT HAS STIMULATOR IMPLANTED IN BACK. AWARE.
[2024-06-20 20:05] VITALS: BP 142/59
[2024-06-21 03:31] VITALS: BP 182/73
--- NOTE | 2024-06-21 05:19 | NUR ---
NO ACUTE CHANGES OVERNIGHT. ROCHE CATHETER REMOVED, PT URINATING POST REMOVAL. PT DENIES CHEST PAIN AND PRESSURE. ORIENTED X4, ABLE TO MAKE NEEDS KNOWN. SBA TO BATHROOM WITH CANE. PT CAN MOVE AROUND INDEPENDENTLY, SBA DUE TO LINES/TELE.
[2024-06-21] MEDS ORDERED: Levothyroxine Sodium 0.075 MG Tab PO SCH (06:00)
[2024-06-21 07:33] VITALS: BP 161/71
[2024-06-21] MEDS ORDERED: Aspirin 81 MG Chew PO SCH (09:00)
[2024-06-21] MEDS ORDERED: ASPI81CH PO (13:55)
[2024-06-21] MEDS ORDERED: ATOR20 PO (13:57)
[2024-06-21] MEDS ORDERED: VISBIOME 112.51 EACH PO (14:07)
[2024-06-21] MEDS ORDERED: CLOP75 PO (14:07)
[2024-06-21] MEDS ORDERED: AMOCLA500 PO (14:08)
--- NOTE | 2024-06-21 14:26 | NUR ---
DISCHARGE/SHIFT SUMMARY: A&Ox4. PLEASANT AND COOPERATIVE WITH CARE. CALLS APPROPRIATELY AND IS ABLE TO ADVOCATE NEEDS EFFECTIVELY. CANE FOR AMBULATION; SBA D/T CORDS/LINES. STOOLING AND VOIDING APPROPRIATELY. LBM TODAY. MEDS WHOLE WITH FLUIDS; NO DYSPHAGIA NOTED. NO PAIN. IV REMOVED BY BENEDICTO HOFF CNA. FOLLOW-UP WITH PCP 1-2 WEEKS.
== END 2024-06-21 15:13 | disposition home or self-care (01) | DRG 69 ==
LOC: ER 18:12 → MEDS 22:32
PROVIDERS: Student in an Organized Health Care Education/Training Program; ADMIT Internal Medicine
DX: G45.9 Transient cerebral ischemic attack, unspecified (principal); J18.9 Pneumonia, unspecified organism; G93.40 Encephalopathy, unspecified; R29.810 Facial weakness; F32.A Depression, unspecified; I12.9 Hypertensive chronic kidney disease with stage 1 through stage 4 chronic kidney disease, or unspecified chronic kidney disease; N18.30 Chronic kidney disease, stage 3 unspecified; E11.22 Type 2 diabetes mellitus with diabetic chronic kidney disease; E03.9 Hypothyroidism, unspecified; Z88.2 Allergy status to sulfonamides; Z88.8 Allergy status to other drugs, medicaments and biological substances; Z79.899 Other long term (current) drug therapy; Z79.4 Long term (current) use of insulin; Z79.890 Hormone replacement therapy; Z90.49 Acquired absence of other specified parts of digestive tract; Z98.890 Other specified postprocedural states; Z90.89 Acquired absence of other organs; Z87.891 Personal history of nicotine dependence
CPT/HCPCS: 0241U; 36415; 51702; 70450; 71045; 80053; 81001; 82947; 83605; 83735; 83880; 84100; 85025; 85610; 85730; 92610; 93005; 93010; 93306; 93880; 96365-59; 96367-59; 97110; 97161; 97530; 99285-25; A9270; J0456; J0696; J1650; J3370; J7030; J7050; J7060

== ENCOUNTER 2024-07-15 02:13 | Day surgery (SDC) | payer MEDICARE, OTHER ==
[~2024-07-15] VITALS: Wt 74.8 kg
[~2024-07-15 02:13] MED LIST changes: +AMOCLA500 PO; +ASPI81CH PO; +ATOR20 PO; +CLOP75 PO
[2024-07-15 16:06] LABS: BASOPHILS ABSOLUTE AUTO 0.01 K/mm3 (0.00-0.23); BASOPHILS PERCENT AUTO 0 % (0-2); EOSINOPHILS ABSOLUTE AUTO 0.06 K/mm3 (0.00-0.68); EOSINOPHILS PERCENT AUTO 2 % (0-6); Hematocrit 32.5 % (33.0-51.0); Hemoglobin 11.1 g/dL (11.5-16.0); IMMATURE GRAN ABSOLUTE AUTO 0.03 K/mm3 (0.00-0.10); IMMATURE GRAN PERCENT AUTO 1 % (0-1); LYMPHOCYTES ABSOLUTE AUTO 1.76 K/mm3 (0.84-5.20); LYMPHOCYTES PERCENT AUTO 47 % (21-46); MONOCYTES ABSOLUTE AUTO 0.31 K/mm3 (0.16-1.47); MONOCYTES PERCENT AUTO 8 % (4-13); Mean Corpuscular HGB 28.9 pg (26.0-34.0); Mean Corpuscular HGB Conc 34.2 g/dL (31.5-36.5); Mean Corpuscular Volume 85 fL (80-100); Mean Platelet Volume 9.1 fL (9.1-12.4); NEUTROPHILS ABSOLUTE AUTO 1.57 K/mm3 (1.96-9.15); NEUTROPHILS PERCENT AUTO 42 % (41-73); Platelet Count 247 K/mm3 (150-400); RDW Coefficient Variation 12.4 % (11.7-14.2); RDW Standard Deviation 37.6 fL (35.1-46.3); Red Blood Cell Count 3.84 M/mm3 (3.80-5.20); White Blood Cell Count 3.74 K/mm3 (4.00-11.30)
[2024-07-15 16:19] VITALS: BP 163/61
[2024-07-15] MEDS ORDERED: DICLOFENAC SOD100 GM TOP (17:02)
[2024-07-15] MEDS ORDERED: Amitiza8 MCG PO (17:02)
[2024-07-15] MEDS ORDERED: ASCO500 PO (17:03)
== END 2024-07-15 16:28 | disposition home or self-care (01) ==
LOC: ATC 02:13
PROVIDERS: Internal Medicine
DX: M05.79 Rheumatoid arthritis with rheumatoid factor of multiple sites without organ or systems involvement (principal); I12.9 Hypertensive chronic kidney disease with stage 1 through stage 4 chronic kidney disease, or unspecified chronic kidney disease; E11.22 Type 2 diabetes mellitus with diabetic chronic kidney disease; N18.9 Chronic kidney disease, unspecified; Z88.5 Allergy status to narcotic agent; Z88.2 Allergy status to sulfonamides; Z79.4 Long term (current) use of insulin; Z79.899 Other long term (current) drug therapy
CPT/HCPCS: 85025; 96365; J1602

== ENCOUNTER 2024-09-16 05:49 | Day surgery (SDC) | payer MEDICARE, OTHER ==
[~2024-09-16 05:49] MED LIST changes: +ASCO500 PO; +DICLOFENAC SOD100 GM TOP
[2024-09-16 15:08] VITALS: BP 168/79
[2024-09-16] MEDS ORDERED: GOLIMUMAB IV SCH (15:10)
[2024-09-16] MEDS ORDERED: NS IV SCH (15:10)
== END 2024-09-16 16:06 | disposition home or self-care (01) ==
LOC: ATC 05:49
DX: M05.79 Rheumatoid arthritis with rheumatoid factor of multiple sites without organ or systems involvement (principal); I12.9 Hypertensive chronic kidney disease with stage 1 through stage 4 chronic kidney disease, or unspecified chronic kidney disease; E11.22 Type 2 diabetes mellitus with diabetic chronic kidney disease; N18.9 Chronic kidney disease, unspecified; Z79.4 Long term (current) use of insulin; Z79.85 Long-term (current) use of injectable non-insulin antidiabetic drugs; Z79.899 Other long term (current) drug therapy; Z88.5 Allergy status to narcotic agent; Z88.8 Allergy status to other drugs, medicaments and biological substances
CPT/HCPCS: 96365; J1602

== ENCOUNTER 2024-11-24 01:01 | Day surgery (SDC) | payer MEDICARE, OTHER ==
[2024-11-24 15:08] VITALS: BP 145/68
[2024-11-24] MEDS ORDERED: Golimumab 150 MG in NS 100 ML IV SCH (15:30)
[2024-11-24 16:45] LABS: BASOPHILS ABSOLUTE AUTO 0.01 K/mm3 (0.00-0.23); BASOPHILS PERCENT AUTO 0 % (0-2); EOSINOPHILS ABSOLUTE AUTO 0.14 K/mm3 (0.00-0.68); EOSINOPHILS PERCENT AUTO 3 % (0-6); Hematocrit 30.6 % (33.0-51.0); Hemoglobin 10.2 g/dL (11.5-16.0); IMMATURE GRAN ABSOLUTE AUTO 0.01 K/mm3 (0.00-0.10); IMMATURE GRAN PERCENT AUTO 0 % (0-1); LYMPHOCYTES ABSOLUTE AUTO 1.62 K/mm3 (0.84-5.20); LYMPHOCYTES PERCENT AUTO 40 % (21-46); MONOCYTES ABSOLUTE AUTO 0.34 K/mm3 (0.16-1.47); MONOCYTES PERCENT AUTO 8 % (4-13); Mean Corpuscular HGB 29.5 pg (26.0-34.0); Mean Corpuscular HGB Conc 33.3 g/dL (31.5-36.5); Mean Corpuscular Volume 88 fL (80-100); Mean Platelet Volume 9.5 fL (9.1-12.4); NEUTROPHILS ABSOLUTE AUTO 1.96 K/mm3 (1.96-9.15); NEUTROPHILS PERCENT AUTO 48 % (41-73); Platelet Count 266 K/mm3 (150-400); RDW Coefficient Variation 13.2 % (11.7-14.2); RDW Standard Deviation 42.7 fL (35.1-46.3); Red Blood Cell Count 3.46 M/mm3 (3.80-5.20); White Blood Cell Count 4.08 K/mm3 (4.00-11.30)
[2024-11-24 17:20] LABS: C-REACTIVE PROTEIN, EXT RANGE <0.290 mg/dL (0.000-0.300)
[2024-11-24 17:20] LABS: Albumin, Blood 3.6 g/dL (3.4-5.0); Albumin/Globulin Ratio 1.1 (0.8-1.8); Bilirubin, Total 0.5 mg/dL (0.1-1.0); Bun/Creatinine Ratio 16.7 (12.0-20.0); Calcium, Blood 8.9 mg/dL (8.5-10.1); Creatinine, Blood 2.15 mg/dL (0.40-1.00); Globulin, Blood 3.4 g/dL (2.2-4.0); Potassium, Blood 3.9 mmol/L (3.5-5.5)
[2024-11-24 17:30] LABS: Alanine Aminotransfer (ALT/SGP 18 U/L (12-78); Albumin, Blood 3.6 g/dL (3.4-5.0); Albumin/Globulin Ratio 1.2 (0.8-1.8); Alk Phos 107 U/L (50-136); Anion Gap 13 mmol/L (3-11); Aspartate Aminotrans (AST/SGOT 23 U/L (12-37); Bilirubin, Total 0.7 mg/dL (0.1-1.0); Blood Urea Nitrogen 36 mg/dL (8-24); Bun/Creatinine Ratio 16.9 (12.0-20.0); CO2, Blood 24 mmol/L (21-32); Calcium, Blood 8.9 mg/dL (8.5-10.1); Chloride, Blood 104 mmol/L (98-108); Creatinine, Blood 2.13 mg/dL (0.40-1.00); Globulin, Blood 3.1 g/dL (2.2-4.0); Glomerular Filtration Rate 23 (60-); Glucose, Blood 180 mg/dL (70-99); Potassium, Blood 4.4 mmol/L (3.5-5.5); Sodium, Blood 137 mmol/L (136-145); Total Protein, Blood 6.7 g/dL (6.4-8.2)
== END 2024-11-24 16:27 | disposition home or self-care (01) ==
LOC: ATC 01:01
PROVIDERS: Internal Medicine; Internal Medicine Endocrinology, Diabetes & Metabolism
DX: M05.79 Rheumatoid arthritis with rheumatoid factor of multiple sites without organ or systems involvement (principal); I12.9 Hypertensive chronic kidney disease with stage 1 through stage 4 chronic kidney disease, or unspecified chronic kidney disease; E11.22 Type 2 diabetes mellitus with diabetic chronic kidney disease; N18.9 Chronic kidney disease, unspecified; Z79.899 Other long term (current) drug therapy; Z79.4 Long term (current) use of insulin; Z88.5 Allergy status to narcotic agent; Z88.2 Allergy status to sulfonamides; Z88.8 Allergy status to other drugs, medicaments and biological substances
CPT/HCPCS: 80053; 83036; 85025; 86140; 96365; J1602

== ENCOUNTER 2025-01-19 01:34 | Day surgery (SDC) | payer MEDICARE, OTHER ==
[2025-01-19 14:30] VITALS: BP 128/78
[2025-01-19] MEDS ORDERED: Golimumab 150 MG in NS 100 ML IV SCH (14:40)
== END 2025-01-19 15:35 | disposition home or self-care (01) ==
LOC: ATC 01:34
DX: M05.79 Rheumatoid arthritis with rheumatoid factor of multiple sites without organ or systems involvement (principal); I12.9 Hypertensive chronic kidney disease with stage 1 through stage 4 chronic kidney disease, or unspecified chronic kidney disease; E11.22 Type 2 diabetes mellitus with diabetic chronic kidney disease; N18.9 Chronic kidney disease, unspecified; Z88.5 Allergy status to narcotic agent; Z79.4 Long term (current) use of insulin; Z79.899 Other long term (current) drug therapy
CPT/HCPCS: 96365; J1602

== ENCOUNTER 2025-02-24 02:43 | Day surgery (SDC) | payer MEDICARE, OTHER ==
[~2025-02-24] VITALS: Wt 80.2 kg
[2025-02-24 16:20] VITALS: BP 157/63
[2025-02-24] MEDS ORDERED: Golimumab 150 MG in NS 100 ML IV SCH (16:25)
== END 2025-02-24 17:30 | disposition home or self-care (01) ==
LOC: ATC 02:43
DX: M05.79 Rheumatoid arthritis with rheumatoid factor of multiple sites without organ or systems involvement (principal); I12.9 Hypertensive chronic kidney disease with stage 1 through stage 4 chronic kidney disease, or unspecified chronic kidney disease; E11.22 Type 2 diabetes mellitus with diabetic chronic kidney disease; N18.9 Chronic kidney disease, unspecified; G89.29 Other chronic pain; M54.9 Dorsalgia, unspecified; E78.00 Pure hypercholesterolemia, unspecified; Z79.4 Long term (current) use of insulin; Z79.84 Long term (current) use of oral hypoglycemic drugs; Z79.85 Long-term (current) use of injectable non-insulin antidiabetic drugs; Z79.899 Other long term (current) drug therapy; Z88.2 Allergy status to sulfonamides; Z88.5 Allergy status to narcotic agent; Z88.8 Allergy status to other drugs, medicaments and biological substances
CPT/HCPCS: 96365; J1602

== ENCOUNTER 2025-04-21 03:25 | Day surgery (SDC) | payer MEDICARE, OTHER ==
[2025-04-21 14:18] VITALS: BP 158/85
[2025-04-21] MEDS ORDERED: Golimumab 150 MG in NS 100 ML IV SCH (14:25)
== END 2025-04-21 15:25 | disposition home or self-care (01) ==
LOC: ATC 03:25
DX: M05.79 Rheumatoid arthritis with rheumatoid factor of multiple sites without organ or systems involvement (principal); I12.9 Hypertensive chronic kidney disease with stage 1 through stage 4 chronic kidney disease, or unspecified chronic kidney disease; N18.9 Chronic kidney disease, unspecified; Z79.899 Other long term (current) drug therapy; Z88.5 Allergy status to narcotic agent; Z88.2 Allergy status to sulfonamides; Z88.8 Allergy status to other drugs, medicaments and biological substances
CPT/HCPCS: 96365; J1602

== ENCOUNTER 2025-06-29 02:23 | Day surgery (SDC) | payer MEDICARE, OTHER ==
[~2025-06-29] VITALS: Wt 84.0 kg
[2025-06-29 14:06] VITALS: BP 180/73
[2025-06-29] MEDS ORDERED: Golimumab 150 MG in NS 100 ML IV SCH (14:40)
[2025-06-29 14:55] LABS: BASOPHILS ABSOLUTE AUTO 0.01 K/mm3 (0.00-0.23); BASOPHILS PERCENT AUTO 0 % (0-2); EOSINOPHILS ABSOLUTE AUTO 0.18 K/mm3 (0.00-0.68); EOSINOPHILS PERCENT AUTO 5 % (0-6); Hematocrit 34.1 % (33.0-51.0); Hemoglobin 11.2 g/dL (11.5-16.0); IMMATURE GRAN ABSOLUTE AUTO 0.01 K/mm3 (0.00-0.10); IMMATURE GRAN PERCENT AUTO 0 % (0-1); LYMPHOCYTES ABSOLUTE AUTO 1.35 K/mm3 (0.84-5.20); LYMPHOCYTES PERCENT AUTO 35 % (21-46); MONOCYTES ABSOLUTE AUTO 0.26 K/mm3 (0.16-1.47); MONOCYTES PERCENT AUTO 7 % (4-13); Mean Corpuscular HGB Conc 32.8 g/dL (31.5-36.5); Mean Corpuscular Volume 89 fL (80-100); NEUTROPHILS ABSOLUTE AUTO 2.04 K/mm3 (1.96-9.15); NEUTROPHILS PERCENT AUTO 53 % (41-73); NRBC ABSOLUTE 0.00 K/mm3 (0.00-0.02); NRBC Auto 0.0 /100 WBC (0.0-0.2); Platelet Count 278 K/mm3 (150-400); RDW Coefficient Variation 12.0 % (11.7-14.2); RDW Standard Deviation 39.2 fL (35.1-46.3)
[2025-06-29 15:30] LABS: C-REACTIVE PROTEIN, EXT RANGE <0.290 mg/dL (0.000-0.300)
[2025-06-29 15:32] LABS: Alanine Aminotransfer (ALT/SGP 16 U/L (12-78); Albumin, Blood 3.6 g/dL (3.4-5.0); Albumin/Globulin Ratio 0.9 (0.8-1.8); Anion Gap 9 mmol/L (3-11); Aspartate Aminotrans (AST/SGOT 16 U/L (12-37); Bilirubin, Total 0.6 mg/dL (0.1-1.0); Blood Urea Nitrogen 34 mg/dL (8-24); CO2, Blood 27 mmol/L (21-32); Calcium, Blood 8.6 mg/dL (8.5-10.1); Chloride, Blood 105 mmol/L (98-108); Creatinine, Blood 2.02 mg/dL (0.40-1.00); Globulin, Blood 3.8 g/dL (2.2-4.0); Glucose, Blood 239 mg/dL (70-99); Potassium, Blood 3.6 mmol/L (3.5-5.5); Sodium, Blood 137 mmol/L (136-145); Total Protein, Blood 7.4 g/dL (6.4-8.2)
== END 2025-06-29 15:50 | disposition home or self-care (01) ==
LOC: ATC 02:23
PROVIDERS: Internal Medicine
DX: M05.79 Rheumatoid arthritis with rheumatoid factor of multiple sites without organ or systems involvement (principal); Z79.899 Other long term (current) drug therapy; Z88.5 Allergy status to narcotic agent; Z88.8 Allergy status to other drugs, medicaments and biological substances; Z88.6 Allergy status to analgesic agent
CPT/HCPCS: 80053; 85025; 86140; J1602

== ENCOUNTER 2025-08-17 17:08 | Inpatient (IN) | payer MEDICARE, OTHER ==
[~2025-08-17] VITALS: Ht 162.6 cm; Wt 79.6 kg
[~2025-08-17 17:08] MED LIST changes: -AMLO5; +NOVOLOG FL100 UNIT/3 SC; -NOVOLOG FL100 UNIT/3 SQ; -SAVELLA12.5 MG PO; +SAVELLA25 MG PO
[2025-08-17 18:24] LABS: BASOPHILS ABSOLUTE AUTO 0.02 K/mm3 (0.00-0.23); BASOPHILS PERCENT AUTO 0 % (0-2); EOSINOPHILS ABSOLUTE AUTO 0.20 K/mm3 (0.00-0.68); EOSINOPHILS PERCENT AUTO 3 % (0-6); Hematocrit 34.0 % (33.0-51.0); Hemoglobin 11.4 g/dL (11.5-16.0); IMMATURE GRAN ABSOLUTE AUTO 0.02 K/mm3 (0.00-0.10); IMMATURE GRAN PERCENT AUTO 0 % (0-1); LYMPHOCYTES ABSOLUTE AUTO 2.32 K/mm3 (0.84-5.20); LYMPHOCYTES PERCENT AUTO 29 % (21-46); MONOCYTES ABSOLUTE AUTO 0.54 K/mm3 (0.16-1.47); MONOCYTES PERCENT AUTO 7 % (4-13); Mean Corpuscular HGB Conc 33.5 g/dL (31.5-36.5); Mean Corpuscular Volume 88 fL (80-100); NEUTROPHILS ABSOLUTE AUTO 4.96 K/mm3 (1.96-9.15); NEUTROPHILS PERCENT AUTO 62 % (41-73); NRBC ABSOLUTE 0.00 K/mm3 (0.00-0.02); NRBC Auto 0.0 /100 WBC (0.0-0.2); Platelet Count 269 K/mm3 (150-400); RDW Coefficient Variation 12.1 % (11.7-14.2); RDW Standard Deviation 38.8 fL (35.1-46.3)
[2025-08-17 18:28] LABS: Source, Urine Clean Catch
[2025-08-17 18:32] LABS: Bilirubin, Urine Neg (Neg); Color, Urine Yellow (P-Yellow); Glucose Qualitative, Urine Neg (Neg); Ketones, Urine Neg (Neg); Leukocyte Esterase, Urine 3+ (Neg); Protein, Urine 3+ (Neg); Specific Gravity, Urine 1.015 (1.003-1.022); Urobilinogen, Urine NORM (Normal)
[2025-08-17 18:45] LABS: White Blood Cells, Urine TNTC /hpf (0-5)
[2025-08-17 19:04] LABS: Alanine Aminotransfer (ALT/SGP 25.0 U/L (12-78); Albumin, Blood 4.0 g/dL (3.4-5.0); Albumin/Globulin Ratio 1.1 (0.8-1.8); Anion Gap 11.0 mmol/L (3-11); Aspartate Aminotrans (AST/SGOT 16.0 U/L (12-37); Bilirubin, Total 0.6 mg/dL (0.1-1.0); Blood Urea Nitrogen 99.0 mg/dL (8-24); CO2, Blood 28.0 mmol/L (21-32); Calcium, Blood 9.1 mg/dL (8.5-10.1); Chloride, Blood 97.0 mmol/L (98-108); Creatinine, Blood 3.91 mg/dL (0.40-1.00); Globulin, Blood 3.6 g/dL (2.2-4.0); Glucose, Blood 160.0 mg/dL (70-99); Potassium, Blood 4.8 mmol/L (3.5-5.5); Sodium, Blood 131.0 mmol/L (136-145); Total Protein, Blood 7.6 g/dL (6.4-8.2)
[2025-08-17] MEDS ORDERED: TORSE20 PO (23:30)
[2025-08-18] MEDS ORDERED: CefTRIAXone Sodium 1,000 MG in NS 50 ML IV ONE (00:10)
[2025-08-18] MEDS ORDERED: NS 1,000 ML IV SCH ×3 (00:10→13:00)
[2025-08-18] MEDS ORDERED: Ondansetron HCl 2 MG / ML 2ML Vial IV PRN (01:50)
[2025-08-18] MEDS ORDERED: FLU VACC TS2025(65UP)/MF59C/PF 45 MCG/0.5 ML SYRINGE IM SCH (01:50)
[2025-08-18 02:11] VITALS: BP 115/94
[2025-08-18 02:42] LABS: BASOPHILS ABSOLUTE AUTO 0.01 K/mm3 (0.00-0.23); BASOPHILS PERCENT AUTO 0 % (0-2); EOSINOPHILS ABSOLUTE AUTO 0.18 K/mm3 (0.00-0.68); EOSINOPHILS PERCENT AUTO 3 % (0-6); Hematocrit 30.0 % (33.0-51.0); Hemoglobin 10.0 g/dL (11.5-16.0); IMMATURE GRAN ABSOLUTE AUTO 0.03 K/mm3 (0.00-0.10); IMMATURE GRAN PERCENT AUTO 0 % (0-1); LYMPHOCYTES ABSOLUTE AUTO 2.72 K/mm3 (0.84-5.20); LYMPHOCYTES PERCENT AUTO 39 % (21-46); MONOCYTES ABSOLUTE AUTO 0.50 K/mm3 (0.16-1.47); MONOCYTES PERCENT AUTO 7 % (4-13); Mean Corpuscular HGB Conc 33.3 g/dL (31.5-36.5); Mean Corpuscular Volume 89 fL (80-100); NEUTROPHILS ABSOLUTE AUTO 3.57 K/mm3 (1.96-9.15); NEUTROPHILS PERCENT AUTO 51 % (41-73); NRBC ABSOLUTE 0.00 K/mm3 (0.00-0.02); NRBC Auto 0.0 /100 WBC (0.0-0.2); Platelet Count 238 K/mm3 (150-400); RDW Coefficient Variation 12.3 % (11.7-14.2); RDW Standard Deviation 39.7 fL (35.1-46.3)
[2025-08-18 03:01] LABS: Alanine Aminotransfer (ALT/SGP 20.0 U/L (12-78); Albumin, Blood 3.5 g/dL (3.4-5.0); Albumin/Globulin Ratio 1.1 (0.8-1.8); Anion Gap 9.0 mmol/L (3-11); Aspartate Aminotrans (AST/SGOT 13.0 U/L (12-37); Bilirubin, Total 0.3 mg/dL (0.1-1.0); Blood Urea Nitrogen 100.0 mg/dL (8-24); CO2, Blood 28.0 mmol/L (21-32); Calcium, Blood 8.5 mg/dL (8.5-10.1); Chloride, Blood 100.0 mmol/L (98-108); Creatinine, Blood 3.65 mg/dL (0.40-1.00); Globulin, Blood 3.1 g/dL (2.2-4.0); Glucose, Blood 174.0 mg/dL (70-99); Potassium, Blood 3.9 mmol/L (3.5-5.5); Sodium, Blood 133.0 mmol/L (136-145); Total Protein, Blood 6.6 g/dL (6.4-8.2)
[2025-08-18 04:28] VITALS: BP 128/46
--- NOTE | 2025-08-18 05:56 | NUR ---
SHIFT SUMMARY PT ADMITTED FROM ER TO ROOM 341. A&OX4. ABLE TO MAKE ALL NEEDS KNOWN. DENIES PAIN. ABLE TO AMBULATE TO THE BATHROOM WITH SBA DUE TO LINES. ADVANCE DIET TOLERATED. TOLERATING IV FLUIDS WELL. CURRENTLY SLEEPING IN BED AT LOWEST POSITION WITH CALL LIGHT WITHIN REACH.
[2025-08-18] MEDS ORDERED: Insulin Human Lispro 100 Units/ML 3ML Syringe SC SCH ×2 (07:30→18:16)
[2025-08-18 08:02] VITALS: BP 147/61
[2025-08-18] MEDS ORDERED: Heparin Sodium,Porcine 5,000 UNIT/0.5 ML SDV SC SCH (09:00)
[2025-08-18 11:00] LABS: Influenza A, PCR NEGATIVE (NEGATIVE); Influenza B, PCR NEGATIVE (NEGATIVE); Resp Syncytial Virus, PCR NEGATIVE (NEGATIVE); SARS-Cov-2 (COVID-19) PCR, MMC NEGATIVE (NEGATIVE)
[2025-08-18] MEDS ORDERED: SPIRONOLACTONE25 MG PO (13:15)
[2025-08-18] MEDS ORDERED: OMEP20ER PO (13:15)
[2025-08-18] MEDS ORDERED: AMLO5 PO (13:24)
[2025-08-18] MEDS ORDERED: HydrALAZINE HCl 20 MG / ML 1ML Vial IV PRN (14:30)
[2025-08-18] MEDS ORDERED: Polyethylene Glycol 3350 17 gm PO PRN (14:45)
[2025-08-18 15:19] VITALS: BP 157/66
[2025-08-18] MEDS ORDERED: AZO CRANBERRY PO (16:04)
[2025-08-18] MEDS ORDERED: Misc. Capsule PO SCH (17:00)
--- NOTE | 2025-08-18 17:49 | NUR ---
SHIFT SUMMARY PATIENT IS A&OX4, PLEASANT AND COOPERATIVE WITH CARE. SHE IS A SBA, CONTINENT. SHE IS ON ROOM AIR WITH TELE SINUS LONG IN THE 50'S. PLAN IS TO TREAT URINARY TRACT INFECTION AND REHYDRATE TO HOPEFULLY BRING UP GFR. NO ACUTE EVENTS THIS SHIFT. SHE IS CURRENTLY HAVING DINNER AND VISITING WITH HER FAMILY. BED IS LOW AND LOCKED, CALL LIGHT IN REACH.
--- NOTE | 2025-08-18 18:01 | NUR ---
[address] CHRISTIANSON REGARDING DISCONTINUATION OF PATIENT INSULIN ORDER. THIS RN ADVISED DOC THAT PATIENT BLOOD SUGAR IS 184 BEFORE DINNER. DOC SAID SHE WOULD LOG INTO COMPUTER AND LOOK AT THE ORDERS.
--- NOTE | 2025-08-18 18:13 | NUR ---
1000 THIS RN AND BHUMIKA CHO RN SPOKE WITH DR. DUONG THIS AM, HE ADVISED OF KEEPING PATIENT ON LOW SLIDING SCALE INSULIN AND CHEM CHECKS AC/HS AND APPROVED A RENAL DIET FOR THE PATIENT.
[2025-08-18 20:33] VITALS: BP 189/62
[2025-08-18] MEDS ORDERED: Misc. Tablet PO SCH (21:00)
[2025-08-18] MEDS ORDERED: CefTRIAXone Sodium 1,000 MG in NS 100 ML IV SCH (21:00)
--- NOTE | 2025-08-18 23:11 | NUR ---
CALLED HOSPITALIST CALLED THE HOSPITALIST. PATIENT RECEIVING INSULIN ALTHOUGH NO ORDER FOR ACHS BLOOD SUGARS. HOSPITALIST ORDERED ACHS BLOOD SUGARS.
[2025-08-18 23:37] VITALS: BP 168/64
[2025-08-19] VITALS (9 sets, daily range): BP systolic 156–194; BP diastolic 63–99
[2025-08-19] MEDS ORDERED: Insulin Human Lispro 100 Units/ML 3ML Syringe SC SCH
[2025-08-19 05:16] LABS: Albumin, Blood 3.2 g/dL (3.4-5.0); Anion Gap 12 mmol/L (3-11); Blood Urea Nitrogen 69 mg/dL (8-24); CO2, Blood 21 mmol/L (21-32); Calcium, Blood 8.5 mg/dL (8.5-10.1); Chloride, Blood 110 mmol/L (98-108); Creatinine, Blood 2.70 mg/dL (0.40-1.00); Glucose, Blood 130 mg/dL (70-99); Phosphorus, Blood 4.6 mg/dL (2.5-4.9); Potassium, Blood 4.8 mmol/L (3.5-5.5); Sodium, Blood 138 mmol/L (136-145)
[2025-08-19 05:39] LABS: BASOPHILS ABSOLUTE AUTO 0.01 K/mm3 (0.00-0.23); BASOPHILS PERCENT AUTO 0 % (0-2); EOSINOPHILS ABSOLUTE AUTO 0.16 K/mm3 (0.00-0.68); EOSINOPHILS PERCENT AUTO 3 % (0-6); Hematocrit 28.5 % (33.0-51.0); Hemoglobin 9.5 g/dL (11.5-16.0); IMMATURE GRAN ABSOLUTE AUTO 0.02 K/mm3 (0.00-0.10); IMMATURE GRAN PERCENT AUTO 0 % (0-1); LYMPHOCYTES ABSOLUTE AUTO 2.04 K/mm3 (0.84-5.20); LYMPHOCYTES PERCENT AUTO 44 % (21-46); MONOCYTES ABSOLUTE AUTO 0.31 K/mm3 (0.16-1.47); MONOCYTES PERCENT AUTO 7 % (4-13); Mean Corpuscular HGB Conc 33.3 g/dL (31.5-36.5); Mean Corpuscular Volume 87 fL (80-100); NEUTROPHILS ABSOLUTE AUTO 2.14 K/mm3 (1.96-9.15); NEUTROPHILS PERCENT AUTO 46 % (41-73); NRBC ABSOLUTE 0.00 K/mm3 (0.00-0.02); NRBC Auto 0.0 /100 WBC (0.0-0.2); Platelet Count 227 K/mm3 (150-400); RDW Coefficient Variation 11.9 % (11.7-14.2); RDW Standard Deviation 38.0 fL (35.1-46.3)
--- NOTE | 2025-08-19 05:41 | NUR ---
SHIFT SUMMARY A&OX4. ABLE TO MAKE NEEDS KNOWN. TOLERATED IV ABX PER ORDERS AND CONTINUES TO RECEIVE IV FLUIDS PER ORDERS. SBA TO RESTROOM DUE TO LINES. PT REPORTS SHE DOES STILL HAVE SOME DISCOMFORT WITH URINATION. GFR TRENDING UP. CURRENTLY SLEEPING IN BED AT LOWEST POSITION WITH CALL LIGHT WITHIN REACH.
[2025-08-19] MEDS ORDERED: NS 1,000 ML IV SCH ×2 (07:00→17:50)
--- NOTE | 2025-08-19 08:42 | NUR ---
CALLED TRIAGE SPECIALIST TO INUIRE ABOUT ULTRASOUND THAT WAS COMPLETED ON 08/18. DR. CHRISTIANSON HAD ORDERED A DUPLICATE TODAY NO RESULTS WERE BACK YET. TECHNICAL SERVICES ASSISTANT CANCELLED TODAYS TEST. TECHNICAL SERVICES ASSISTANT STATED HER RESULTS NEVER CROSSED OVER FROM YESTERDAY AND WILL REACH OUT TO COMMERCIAL DOOR INSTALLER. ATTEMPTED TO NOTIFY DR. CHRISTIANSON AT [phone] WITH NO ANSWER, LEFT MESSAGE.
--- NOTE | 2025-08-19 09:41 | NUR ---
[address] CHRISTIANSON TO REQUEST BOWEL CARE ON PATIENT REQUEST. PT DECLINED MIRALAX BUT WAS OPEN TO USING A SUPPOSITORY, DR. CHRISTIANSON STATED SHE WOULD PUT IN THE ORDER.
--- NOTE | 2025-08-19 17:03 | NUR ---
[address] DUONG ABOUT HIGH BLOOD PRESSURES IN PATIENT, BLOOD PRESSURE MEDICATIONS FROM HOME HAD BEEN DC'D LAST NIGHT, HER PRESSURES ARE RUNNING 180-190'S. DR. DUONG ADVISED TO GIVE AMLODIPINE 5MG IV NOW AND RECHECK IN 30 MINUTES, CALL TO LET HIM KNOW. DR. DUONG SAID HE WOULD REVIEW HER MEDICATIONS.
--- NOTE | 2025-08-19 19:28 | NUR ---
BLOOD PRESSURE RECHECK STILL ELEVATED SYSTOLICALLY IN THE 180'S AFTER 10 MG OF AMLODIPINE, DR GARCIA NOTIFIED AND ORDERED HOME LOSARTAN 50 MG NOW AND HOME CARVEDILOL 3.125 MG TO START IN AM. BOTH ARE NOW SCHEDULED.
[2025-08-20 04:55] VITALS: BP 177/71
--- NOTE | 2025-08-20 06:18 | NUR ---
SHIFT SUMMARY: PATIENT A+O X4 AND ABLE TO MAKE NEEDS KNOWN. SHE HAS SLEPT WELL THROUGHOUT THE NIGHT WITH FEW INTERUPTIONS. NO COMPLAINTS OF PAIN OR DISCOMFORT. HEART WNL, LUNGS CLEAR THROUGHOUT. PATIENT UP TO URINATE DURING THE NIGHT. NO BOWEL MOVEMENT THIS SHIFT. HYPOACTIVE SOUNDS NOTED UPON ASCULTATION IN ALL FOUR QUADRENTS. SKIN INTACT. PLAN TO CONTINUE IV ABX AT THIS TIME AND MONITOR HEMODYNAMICS. CALL LIGHT WITHIN REACH, BED IN LOWEST POSITION, NO NEEDS AT THIS TIME.
[2025-08-20 06:36] LABS: BASOPHILS ABSOLUTE AUTO 0.01 K/mm3 (0.00-0.23); BASOPHILS PERCENT AUTO 0 % (0-2); EOSINOPHILS ABSOLUTE AUTO 0.17 K/mm3 (0.00-0.68); EOSINOPHILS PERCENT AUTO 3 % (0-6); Hematocrit 28.2 % (33.0-51.0); Hemoglobin 9.6 g/dL (11.5-16.0); IMMATURE GRAN ABSOLUTE AUTO 0.02 K/mm3 (0.00-0.10); IMMATURE GRAN PERCENT AUTO 0 % (0-1); LYMPHOCYTES ABSOLUTE AUTO 2.32 K/mm3 (0.84-5.20); LYMPHOCYTES PERCENT AUTO 42 % (21-46); MONOCYTES ABSOLUTE AUTO 0.48 K/mm3 (0.16-1.47); MONOCYTES PERCENT AUTO 9 % (4-13); Mean Corpuscular HGB Conc 34.0 g/dL (31.5-36.5); Mean Corpuscular Volume 88 fL (80-100); NEUTROPHILS ABSOLUTE AUTO 2.58 K/mm3 (1.96-9.15); NEUTROPHILS PERCENT AUTO 46 % (41-73); NRBC ABSOLUTE 0.00 K/mm3 (0.00-0.02); NRBC Auto 0.0 /100 WBC (0.0-0.2); Platelet Count 237 K/mm3 (150-400); RDW Coefficient Variation 11.9 % (11.7-14.2); RDW Standard Deviation 38.7 fL (35.1-46.3)
[2025-08-20 06:51] LABS: Albumin, Blood 3.1 g/dL (3.4-5.0); Anion Gap 5 mmol/L (3-11); Blood Urea Nitrogen 49 mg/dL (8-24); CO2, Blood 27 mmol/L (21-32); Calcium, Blood 8.5 mg/dL (8.5-10.1); Chloride, Blood 111 mmol/L (98-108); Creatinine, Blood 2.07 mg/dL (0.40-1.00); Glucose, Blood 130 mg/dL (70-99); Phosphorus, Blood 3.5 mg/dL (2.5-4.9); Potassium, Blood 4.2 mmol/L (3.5-5.5); Sodium, Blood 139 mmol/L (136-145)
[2025-08-20 07:44] VITALS: BP 168/72
--- NOTE | 2025-08-20 08:22 | NUR ---
Pt sitting up on the side of the bed eating breakfast, a/ox4, pleasant and cooperative with care, follows commands well, denies complaints at this time, states she's ready to go home, lungs are clear t/o, resp even and unlabored, no cough noted, hrr, tele in place running sr in 60 to 70s with bbb, no edema noted, ppp+1, cap refill<3 sec, vs stable, afebrile, piv to rac site is clear and patent, btx4, abd flat soft nontender, voids without diff, she reports bm yesterday, did not want further bowel care at this time, skin c/w/d, don orr, call light in reach.
[2025-08-20] MEDS ORDERED: VISBIOME 112.51 EACH PO (12:14)
[2025-08-20] MEDS ORDERED: CEPH250A PO (12:15)
[2025-08-20] MEDS ORDERED: OXYB5 PO (12:15)
[2025-08-20 13:47] VITALS: BP 159/77
--- NOTE | 2025-08-20 14:15 | NUR ---
pt has been dishcarged to home, went over discharge instructions with her, she verbalized understanding, piv removed intact, new meds faxed to [facility], waiting on her transportation. call light in reach.
--- NOTE | 2025-08-20 14:18 | NUR ---
pt left via wheelchair with all her belongings.
== END 2025-08-20 14:15 | disposition home or self-care (01) | DRG 683 ==
LOC: ER 17:08 → MEDS 08-18 00:09
PROVIDERS: Physician Assistant; ADMIT Internal Medicine
DX: N17.9 Acute kidney failure, unspecified (principal); I13.0 Hypertensive heart and chronic kidney disease with heart failure and stage 1 through stage 4 chronic kidney disease, or unspecified chronic kidney disease; N39.0 Urinary tract infection, site not specified; I50.32 Chronic diastolic (congestive) heart failure; E03.9 Hypothyroidism, unspecified; F32.A Depression, unspecified; E11.22 Type 2 diabetes mellitus with diabetic chronic kidney disease; E86.0 Dehydration; E78.5 Hyperlipidemia, unspecified; E11.42 Type 2 diabetes mellitus with diabetic polyneuropathy; N18.32 Chronic kidney disease, stage 3b; R00.1 Bradycardia, unspecified; K59.09 Other constipation; K21.9 Gastro-esophageal reflux disease without esophagitis; R33.8 Other retention of urine; B96.20 Unspecified Escherichia coli [E. coli] as the cause of diseases classified elsewhere; Z87.440 Personal history of urinary (tract) infections; Z87.891 Personal history of nicotine dependence; Z90.49 Acquired absence of other specified parts of digestive tract; Z90.89 Acquired absence of other organs; Z98.890 Other specified postprocedural states; Z79.4 Long term (current) use of insulin; Z79.02 Long term (current) use of antithrombotics/antiplatelets; Z79.85 Long-term (current) use of injectable non-insulin antidiabetic drugs; Z79.890 Hormone replacement therapy; Z79.899 Other long term (current) drug therapy; Z88.2 Allergy status to sulfonamides; Z88.5 Allergy status to narcotic agent; Z88.8 Allergy status to other drugs, medicaments and biological substances
CPT/HCPCS: 36415; 76770; 80053; 80069; 81001; 82947; 83605; 83880; 85025; 87077; 87086; 87186; 87637; 99284; A9270; J0696; J1644; J7030

== ENCOUNTER 2025-09-18 16:16 | Inpatient (IN) | payer MEDICARE, OTHER ==
[~2025-09-18] VITALS: Ht 162.6 cm; Wt 83.5 kg
[~2025-09-18 16:16] MED LIST changes: +AMLO5 PO; +AZO CRANBERRY PO; +CEPH250A PO; +OMEP20ER PO; +OXYB5 PO; +SPIRONOLACTONE25 MG PO; +TORSE20 PO
[2025-09-18] MEDS ORDERED: HYDROmorphone HCl/Pf 1MG SYR IV ONE ×2 (16:35→17:15)
[2025-09-18] MEDS ORDERED: NS 1,000 ML IV SCH ×2 (16:35→19:00)
[2025-09-18 16:47] LABS: BASOPHILS ABSOLUTE AUTO 0.02 K/mm3 (0.00-0.23); BASOPHILS PERCENT AUTO 0 % (0-2); EOSINOPHILS ABSOLUTE AUTO 0.07 K/mm3 (0.00-0.68); EOSINOPHILS PERCENT AUTO 1 % (0-6); Hematocrit 33.4 % (33.0-51.0); Hemoglobin 11.3 g/dL (11.5-16.0); IMMATURE GRAN ABSOLUTE AUTO 0.03 K/mm3 (0.00-0.10); IMMATURE GRAN PERCENT AUTO 1 % (0-1); LYMPHOCYTES ABSOLUTE AUTO 1.28 K/mm3 (0.84-5.20); LYMPHOCYTES PERCENT AUTO 22 % (21-46); MONOCYTES ABSOLUTE AUTO 0.43 K/mm3 (0.16-1.47); MONOCYTES PERCENT AUTO 8 % (4-13); Mean Corpuscular HGB Conc 33.8 g/dL (31.5-36.5); Mean Corpuscular Volume 87 fL (80-100); NEUTROPHILS ABSOLUTE AUTO 3.93 K/mm3 (1.96-9.15); NEUTROPHILS PERCENT AUTO 68 % (41-73); NRBC ABSOLUTE 0.00 K/mm3 (0.00-0.02); NRBC Auto 0.0 /100 WBC (0.0-0.2); Platelet Count 252 K/mm3 (150-400); RDW Coefficient Variation 12.1 % (11.7-14.2); RDW Standard Deviation 38.8 fL (35.1-46.3)
[2025-09-18 17:11] LABS: Alanine Aminotransfer (ALT/SGP 26.0 U/L (12-78); Albumin, Blood 3.8 g/dL (3.4-5.0); Albumin/Globulin Ratio 1.1 (0.8-1.8); Anion Gap 10.0 mmol/L (3-11); Aspartate Aminotrans (AST/SGOT 15.0 U/L (12-37); Bilirubin, Total 0.7 mg/dL (0.1-1.0); Blood Urea Nitrogen 83.0 mg/dL (8-24); CO2, Blood 24.0 mmol/L (21-32); Calcium, Blood 8.8 mg/dL (8.5-10.1); Chloride, Blood 100.0 mmol/L (98-108); Creatinine, Blood 3.32 mg/dL (0.40-1.00); Globulin, Blood 3.6 g/dL (2.2-4.0); Glucose, Blood 187.0 mg/dL (70-99); Magnesium, Blood 2.5 mg/dL (1.6-2.4); Potassium, Blood 4.8 mmol/L (3.5-5.5); Sodium, Blood 129.0 mmol/L (136-145); Total Protein, Blood 7.4 g/dL (6.4-8.2)
[2025-09-18] MEDS ORDERED: Ondansetron HCl 2 MG / ML 2ML Vial IV PRN (18:45)
[2025-09-18] MEDS ORDERED: FLU VACC TS2025(65UP)/MF59C/PF 45 MCG/0.5 ML SYRINGE IM SCH (18:50)
[2025-09-18] MEDS ORDERED: Magnesium Hydroxide Conc 10 ML UDC PO PRN (19:05)
[2025-09-18 21:29] VITALS: BP 156/64
[2025-09-18 23:50] VITALS: BP 148/61
[2025-09-19] MEDS ORDERED: FentaNYL Citrate 50 MCG/ML 2 ML Injection IV PRN (01:00)
[2025-09-19 04:39] VITALS: BP 148/73
--- NOTE | 2025-09-19 05:20 | NUR ---
SHIFT SUMMARY PT ER ADMIT THIS SHIFT FOR LEFT ANKLE FRACTURE FROM GLF AT HOME. PT REPORTS THAT SHE HAD BEEN SICK FOR THE PAST 4 DAYS UNABLE TO KEEP FOOD DOWN. N/V. PT REPORTS THAT SHE DIDNT HAVE DIARRHEA EXCEPT ONE SOFT STOOL YESTERDAY THAT SHE REPORTS WAS BLACK IN COLOR. PROVIDER LÁZARO NOTIFIED, ASKED IF HE WANTED TO RUN A GI PANEL. HE DID NOT WANT TO ORDER AT THIS TIME. PT HAS HAD NO N/V SINCE ADMISSION, NO LOOSE STOOLS. SHE HAS TOLERATED PO INTAKE. L ANKLE IS SPLINTED. PT DIABETIC AND REPORTS NEUROPATHY AT BASELINE. PAIN MANAGED WITH OXYCODONE AND FENTANYL. IVF INFUSING. PLAN IS FOR POSSIBLE OUT PT FOLLOW UP FOR ANKLE FRACTURE. PT BEDREST AT THIS TIME. BED IN LOWEST POSITION, CALL LIGHT WITHIN REACH.
[2025-09-19 07:00] LABS: Anion Gap 10.0 mmol/L (3-11); Blood Urea Nitrogen 78.0 mg/dL (8-24); CO2, Blood 21.0 mmol/L (21-32); Calcium, Blood 8.3 mg/dL (8.5-10.1); Chloride, Blood 105.0 mmol/L (98-108); Creatinine, Blood 2.9 mg/dL (0.40-1.00); Glucose, Blood 173.0 mg/dL (70-99); Potassium, Blood 4.1 mmol/L (3.5-5.5); Sodium, Blood 132.0 mmol/L (136-145)
[2025-09-19] MEDS ORDERED: Insulin Human Lispro 100 Units/ML 3ML Syringe SC SCH (07:30)
[2025-09-19 07:33] VITALS: BP 144/57
[2025-09-19] MEDS ORDERED: Enoxaparin 40 MG/0.4 ML SYR SC SCH (09:00)
[2025-09-19 11:42] VITALS: BP 154/64
[2025-09-19] MEDS ORDERED: Magnesium Hydroxide Conc 10 ML UDC PO ONE (12:00)
[2025-09-19 12:53] LABS: Hematocrit 29.7 % (33.0-51.0); Hemoglobin 10.0 g/dL (11.5-16.0); Mean Corpuscular HGB Conc 33.7 g/dL (31.5-36.5); Mean Corpuscular Volume 89 fL (80-100); NRBC ABSOLUTE 0.00 K/mm3 (0.00-0.02); NRBC Auto 0.0 /100 WBC (0.0-0.2); Platelet Count 230 K/mm3 (150-400); RDW Coefficient Variation 12.1 % (11.7-14.2); RDW Standard Deviation 38.9 fL (35.1-46.3)
[2025-09-19 17:04] VITALS: BP 146/62
--- NOTE | 2025-09-19 18:50 | NUR ---
SHIFT SUMMARY: PATIENT REMAINS A+O X4 AND IS ABLE TO MAKE NEEDS KNOWN THROUGHOUT THIS SHIFT. DR. LAZO CONSULTED FOR POSSIBLE SURGICAL INTERVENTION D/T SPECIFIC FX. AT THIS TIME, MS. MAIN REMAINS BEDREST. LLE ELEVATED ON PILLOW FOR COMFORT. MEDICATED WITH OXYCODONE X2 DURING THIS DAY FOR PAIN. SEE EMAR FOR DETAILS. FEMALE PUREWICK IN PLACE AND HAS GOOD OUTPUT OF CLEAR YELLOW URINE. NO OTHER ACUTE CHANGES DURING THIS DAY. WILL REPORT TO ONCOMING NURSE.
[2025-09-19 19:47] VITALS: BP 157/58
[2025-09-19] MEDS ORDERED: CeFAZolin Sodium 2,000 MG in NS 100 ML IV SCH (20:40)
--- NOTE | 2025-09-19 23:00 | NUR ---
IV REMOVAL R AC IV SITE ASSESSED CATHETER OUT AND LEAKING. REMOVED @ 1999.
[2025-09-20] VITALS (18 sets, daily range): BP systolic 92–187; BP diastolic 47–77
[2025-09-20 05:49] LABS: Hematocrit 27.9 % (33.0-51.0); Hemoglobin 9.4 g/dL (11.5-16.0); Mean Corpuscular HGB Conc 33.7 g/dL (31.5-36.5); Mean Corpuscular Volume 87 fL (80-100); NRBC ABSOLUTE 0.00 K/mm3 (0.00-0.02); NRBC Auto 0.0 /100 WBC (0.0-0.2); Platelet Count 213 K/mm3 (150-400); RDW Coefficient Variation 12.2 % (11.7-14.2); RDW Standard Deviation 39.3 fL (35.1-46.3)
[2025-09-20 06:27] LABS: Anion Gap 11.0 mmol/L (3-11); Blood Urea Nitrogen 61.0 mg/dL (8-24); CO2, Blood 22.0 mmol/L (21-32); Calcium, Blood 8.5 mg/dL (8.5-10.1); Chloride, Blood 106.0 mmol/L (98-108); Creatinine, Blood 2.38 mg/dL (0.40-1.00); Glucose, Blood 150.0 mg/dL (70-99); Potassium, Blood 4.5 mmol/L (3.5-5.5); Sodium, Blood 134.0 mmol/L (136-145)
--- NOTE | 2025-09-20 07:24 | NUR ---
SHIFT SUMMARY L ANKLE FX AFTER GLF. PT ORIENTED TO PERSON, PLACE, AND SITUATION. PAIN MANAGED WELL PER EMAR. NPO SINCE 0000 IN ANTICIPATION OF SURGERY THIS MORNING. CONTINUOUS PULSE OX IN PLACE, SPO2 97% ON RA. SPLINT TO L ANKLE AND FOOT. PT RESTING IN BED, RESPIRATIOIN EVEN AND UNLABORED. CALL LIGHT WITHIN REACH.
[2025-09-20] MEDS ORDERED: Ropivacaine 0.5% HCL/PF 5 MG/ML 30ML Vial ONE (08:01)
[2025-09-20] MEDS ORDERED: FentaNYL Citrate 50 MCG/ML 2 ML Injection ONE (08:04)
[2025-09-20] MEDS ORDERED: Midazolam HCl 1MG / ML 2ML Vial ONE (08:07)
[2025-09-20] MEDS ORDERED: Ondansetron HCl 2 MG / ML 2ML Vial ONE (09:11)
[2025-09-20] MEDS ORDERED: Dexamethasone Sod Phos 10 MG/ML 1ML VIAL ONE ×2 (09:11)
[2025-09-20] MEDS ORDERED: Ondansetron HCl 2 MG / ML 2ML Vial IV PRN (09:25)
[2025-09-20] MEDS ORDERED: FentaNYL Citrate 50 MCG/ML 2 ML Injection IV PRN ×2 (09:25→09:30)
[2025-09-20] MEDS ORDERED: Albuterol 2.5 MG/3 ML VIAL INH PRN (09:30)
[2025-09-20] MEDS ORDERED: HydrALAZINE HCl 20 MG / ML 1ML Vial ONE (10:13)
[2025-09-20] MEDS ORDERED: HydrALAZINE HCl 20 MG / ML 1ML Vial IV SCH (11:00)
[2025-09-20] MEDS ORDERED: Polyethylene Glycol 3350 17 gm PO PRN (12:40)
--- NOTE | 2025-09-20 17:19 | NUR ---
SHIFT SUMMARY PT HAD L ANKLE ORIF TO TRIMALLEOLAR FX TODAY. BLOCK IN PLACE. PT DENIES PAIN. PM BLOOD GLUCOSE ELEVATED. DR DIXON NOTIFED AND YGFN INSULIN ORDERED.
[2025-09-20] MEDS ORDERED: Insulin Glargine-Yfgn 100 Unit/mL 3 ML SYR SC SCH (18:00)
[2025-09-20] MEDS ORDERED: Docusate Sodium/Senna 1 Tab PO SCH (21:00)
[2025-09-21 04:27] LABS: Hematocrit 28.2 % (33.0-51.0); Hemoglobin 9.5 g/dL (11.5-16.0); Mean Corpuscular HGB Conc 33.7 g/dL (31.5-36.5); Mean Corpuscular Volume 88 fL (80-100); NRBC ABSOLUTE 0.00 K/mm3 (0.00-0.02); NRBC Auto 0.0 /100 WBC (0.0-0.2); Platelet Count 230 K/mm3 (150-400); RDW Coefficient Variation 12.1 % (11.7-14.2); RDW Standard Deviation 39.5 fL (35.1-46.3)
[2025-09-21 04:28] VITALS: BP 149/61
[2025-09-21 04:55] LABS: Albumin, Blood 3.0 g/dL (3.4-5.0); Anion Gap 11 mmol/L (3-11); Blood Urea Nitrogen 58 mg/dL (8-24); CO2, Blood 21 mmol/L (21-32); Calcium, Blood 8.8 mg/dL (8.5-10.1); Chloride, Blood 106 mmol/L (98-108); Creatinine, Blood 2.44 mg/dL (0.40-1.00); Ferritin, Serum 483 ng/mL (8-252); Glucose, Blood 352 mg/dL (70-99); Magnesium, Blood 2.4 mg/dL (1.6-2.4); Phosphorus, Blood 2.7 mg/dL (2.5-4.9); Potassium, Blood 5.1 mmol/L (3.5-5.5); Sodium, Blood 133 mmol/L (136-145); Total Iron Binding Capacity 186 ug/dL (250-450)
[2025-09-21 07:31] VITALS: BP 165/64
--- NOTE | 2025-09-21 07:37 | NUR ---
SHIFT SUMMARY POD 1 L ANKLE ORIF. PAIN MANAGED WELL PER EMAR. DRESSING TO L ANKLE C/D/I. SR @ 71 PER ERGONOMICS ENGINEER. CONTINUOUS PULSE OX IN PLACE SPO2 97% ON RA. PT TOLERATING PO INTAKE, DENIES N&V. PUREWICK IN PLACE, PATENT, DRAINING LIGHT YELLOW URINE TO SUCTION. PT RESTING IN BED, NO SIGNS OF DISTRESS NOTED. CALL LIGHT WITHIN REACH.
[2025-09-21] MEDS ORDERED: Cholecalciferol 1000 Unit Tablet (=25MCG) PO SCH (09:00)
[2025-09-21] MEDS ORDERED: Enoxaparin 30 MG/0.3 ML SYR SC SCH (11:00)
[2025-09-21 11:50] VITALS: BP 175/68
[2025-09-21 15:01] VITALS: BP 168/54
--- NOTE | 2025-09-21 19:14 | NUR ---
SUMMARY ASSUMED CARE OF PT @0700. VSS. AXO4. IN SR BBB 80'S. ON RA. PT WAS IN CHAIR FOR 4-5 HOURS TODAY, MAINTAINED NWB TO L LEG WELL. WORKED WITH PHYSICAL THERAPY. PUREWICK IN PLACE. SPLINT CDI TO L LEG. TOES PINK, CAP REFILL <3EC. TOLERATING DIET WELL - PLACED DIET ORDERS TO MIMIC PESCATARIAN DIET. OTHERWISE, PT HAS RESTED OFF AND ON - ICE APPLIED AT TIMES TO LEG, PAIN MEDS PER EMAR AND REPOSITIONING IN PLACE.
[2025-09-21 19:51] VITALS: BP 170/74
[2025-09-22 00:23] VITALS: BP 151/59
--- NOTE | 2025-09-22 05:01 | NUR ---
SHIFT SUMMARY S/P LEFT ANKLE REPAIR. PT HAS RESTED T/O THE NIGHT, PAIN MANAGED PER EMAR. PT HAS REQUIRED IV PAIN MEDICATION FOR PAIN CONTROL THIS SHIFT. SURGICAL SITE WNL, DRESSING INTACT. PT VOIDING WITH PUREWICK IN PLACE. PT AWAITING DISCHARGE SNF. BED IN LOWEST POSITION, CALL LIGHT WITHIN REACH.
[2025-09-22 05:44] VITALS: BP 144/58
[2025-09-22 07:27] VITALS: BP 155/57
[2025-09-22] MEDS ORDERED: Torsemide 20 MG TAB PO SCH (09:00)
[2025-09-22 11:16] VITALS: BP 120/54
[2025-09-22 11:17] VITALS: BP 120/54
--- NOTE | 2025-09-22 15:07 | NUR ---
ASSUMED CARE OF PT @0700 AXO4. VSS. SPLINT/ABIGAIL WRAP TO L LEG CDI - TOES PINK, CAP REFILL <3SEC. FEELING RETURNED POST LOCAL BLOCK WEARING OFF. PT IN SR BBB 80'S PER TELE. PT TOLERATED PO INTAKE WELL. VOIDING WELL. ATTEMPTED TO HAVE BM BUT UNABLE DUE TO "LOUD ENVIRONMENT" OF HOSPITAL. PAIN MEDS PROVIDED PER EMAR. THROUGH CARE MANAGEMENT - ARRANGEMENTS MADE TO DR[facility]. PT OPTED TO HAVE PRIVATE TRANSPORT WITH SON. DC INSTRUCTION PACKET ALONG WITH PHYSICAL PAIN PRESCRIPTION PROVIDED. PT DRESSED. IV PULLED. VSS. PT WHEELED OUT TO VEHICLE AND DC'D @8496. REPORT CALLED TO [facility].
== END 2025-09-22 14:21 | DRG 493 ==
LOC: ER 16:16 → ERHOLD 16:17 → SURS 16:17
PROVIDERS: Emergency Medicine; Internal Medicine; Podiatrist Foot & Ankle Surgery; ADMIT Internal Medicine
PROC: 0QSK0ZZ Reposition Left Fibula, Open Approach (ICD-10-PCS; 2025-09-20)
PROC: 0QSH04Z Reposition Left Tibia with Internal Fixation Device, Open Approach (ICD-10-PCS; principal; 2025-09-20 08:30)
DX: S82.852A Displaced trimalleolar fracture of left lower leg, initial encounter for closed fracture (principal); I50.32 Chronic diastolic (congestive) heart failure; N17.9 Acute kidney failure, unspecified; N18.4 Chronic kidney disease, stage 4 (severe); W18.30XA Fall on same level, unspecified, initial encounter; R55 Syncope and collapse; F32.A Depression, unspecified; E03.9 Hypothyroidism, unspecified; E11.22 Type 2 diabetes mellitus with diabetic chronic kidney disease; I11.0 Hypertensive heart disease with heart failure; E86.0 Dehydration; R19.5 Other fecal abnormalities; K59.00 Constipation, unspecified; E11.42 Type 2 diabetes mellitus with diabetic polyneuropathy; E78.5 Hyperlipidemia, unspecified; D63.1 Anemia in chronic kidney disease; Z88.2 Allergy status to sulfonamides; Z88.8 Allergy status to other drugs, medicaments and biological substances; Z88.5 Allergy status to narcotic agent; Z90.49 Acquired absence of other specified parts of digestive tract; Z87.891 Personal history of nicotine dependence; Z79.899 Other long term (current) drug therapy
CPT/HCPCS: 29515; 36415; 73610; 80048; 80053; 80069; 82728; 82947; 83540; 83550; 83735; 84484; 85025; 85027; 93005; 93010; 94762; 96374-59; 96375; 96376; 96376-59; 97110; 97161; 97530; 99285-25; A6253; A9270; C1713; G0378; J0360; J0690; J1100; J1171; J1650; J1815; J2250; J2405; J2704; J2795; J3010; J7030